=== PATIENT | female | born 1960 | race Caucasian/White ===

== ENCOUNTER 2016-09-10 09:12 | Emergency (ER) | payer MEDICAID ==
[2016-09-10 09:22] VITALS: TEMP 98
--- NOTE | 2016-09-10 09:31 | ED ---
URI HPI - General Chief Complaint: Upper Respiratory Infection Stated Complaint: sinus Time Seen by Provider: 09/10/16 09:25 Source: patient, RN notes reviewed Mode of arrival: ambulatory Limitations: no limitations - History of Present Illness Initial Comments: 56-year-old female presents emergency Department chief complaint of sinus pressure, sinus headache. Patient states that she's been having ongoing symptoms. Patient states that she just had low-grade fever throughout this. She states she has minimal cough is that she was only [place]/down. Patient denies any chest pain or shortness breath. Patient states she's been taking ibuprofen for her fever. Patient states that she has pressure in her ears and just generalized feels sick. She has not tried any [id number] cough and cold medications. - Related Data Home Medications Medication Instructions Recorded Confirmed ALPRAZolam [Xanax] 0.25 mg PO DAILY PRN 07/17/14 09/10/16 Levothyroxine Sodium [Synthroid] 200 mcg PO DAILY 07/17/14 09/10/16 Losartan-Hctz 50-12.5 mg [Hyzaar 1 tab PO DAILY 07/17/14 09/10/16 50-12.5] Ergocalciferol (Vitamin D2) 50,000 unit PO TU 06/07/16 09/10/16 [Drisdol] Previous Rx's Medication Instructions Recorded Escitalopram [Lexapro] 10 mg PO DAILY tab 06/10/16 Levofloxacin [Levaquin] 500 mg PO DAILY #10 tab 09/10/16 Allergies Allergy/AdvReac Type Severity Reaction Status Date / Time moxifloxacin HCl Allergy Intermediate Rash/Hives Verified 09/10/16 09:23 [From Avelox] Sulfa (Sulfonamide Allergy Intermediate Rash/Hives Verified 09/10/16 09:23 Antibiotics) sodium nitrite AdvReac Severe MIGRAINE Verified 09/10/16 09:23 Penicillins AdvReac Unknown Verified 09/10/16 09:23 Review of Systems ROS Statement: Those systems with pertinent positive or pertinent negative responses have been documented in the HPI. ROS Other: All systems not noted in ROS Statement are negative. Past Medical History Past Medical History: Asthma, Cancer, Hypertension, Pneumonia, Sleep Apnea/CPAP/ BIPAP Additional Past Medical History / Comment(s): Thyroid cancer status post radiation and thyroidectomy, skin cancer with removal, CHELSEA with CPAP (pt did not bring with her because normally she tolerates it well but last couple nights has not been able to tolerate), 2009 pneumonia, IBS. History of Any Multi-Drug Resistant Organisms: None Reported Past Surgical History: Adenoidectomy, Breast Surgery, Heart Catheterization, Tonsillectomy Additional Past Surgical History / Comment(s): Total thyroidectomy, skin cancer removal from nose and forehead, bilateral breast reductions, normal cardiac cath , colonoscopy. Past Anesthesia/Blood Transfusion Reactions: Previous Problems w/ Anesthesia, Motion Sickness Additional Past Anesthesia/Blood Transfusion Reaction / Comment(s): DIFFICULT INTUBATION. Pt received blood with breast surgery without reaction. Past Psychological History: Anxiety, Depression Additional Psychological History / Comment(s): Pt resides with her spouse. She is independent. Smoking Status: Former smoker Past Alcohol Use History: Occasional Additional Past Alcohol Use History / Comment(s): Pt smoked from [id number]. Past Drug Use History: None Reported - Past Family History Father Family Medical History: Diabetes Mellitus, Myocardial Infarction (HI) Additional Family Medical History / Comment(s): Father had 4-5 HI's with his first HI at the age of 78yrs. He lived to be 82 yrs old. Mother Family Medical History: Cancer Additional Family Medical History / Comment(s): Mother is 77 yrs old and has end stage pancreatic cancer. General Exam Limitations: no limitations General appearance: alert, in no apparent distress Head exam: Present: atraumatic, normocephalic, normal inspection Eye exam: Present: normal appearance, PERRL, EOMI. Absent: scleral icterus, conjunctival injection, periorbital swelling ENT exam: Present: mucous membranes moist, TM's normal bilaterally, normal external ear exam. Absent: normal oropharynx (Erythema, posterior nasal drainage) Neck exam: Present: normal inspection, full ROM. Absent: tenderness, meningismus, lymphadenopathy Respiratory exam: Present: normal lung sounds bilaterally. Absent: respiratory distress, wheezes, rales, rhonchi, stridor Cardiovascular Exam: Present: regular rate, normal rhythm, normal heart sounds. Absent: systolic murmur, diastolic murmur, rubs, gallop, clicks Course Vital Signs 09/10/16 09:20 Temperature 98.0 F Pulse Rate 81 Respiratory 16 Rate Blood Pressure 118/71 O2 Sat by Pulse 97 Oximetry Medical Decision Making - Medical Decision Making 56-year-old female presented for cough and cold like symptoms. Patient does have occasional sinus. Patient's had low-grade fever, facial pain. Patient was treated with antibiotics at this time. Disposition Clinical Impression: Acute sinusitis Disposition: HOME SELF-CARE Condition: Stable Instructions: Sinusitis (ED) Additional Instructions: Please return to the Emergency Department if symptoms worsen or any other concerns. Prescriptions: Levofloxacin [Levaquin] 500 mg PO DAILY #10 tab Referrals: Ray Gunn DO [Primary Care Provider] - 1-2 days Time of Disposition: 09:31
[2016-09-10 09:42] VITALS: BP 136/76; PULSE 77; RESP 15
== END 2016-09-10 10:00 | disposition home or self-care (01) ==
LOC: EC 09:12
DX: J01.90 Acute sinusitis, unspecified (principal); I10 Essential (primary) hypertension; G47.33 Obstructive sleep apnea (adult) (pediatric); F32.9 Major depressive disorder, single episode, unspecified; F41.9 Anxiety disorder, unspecified; E89.0 Postprocedural hypothyroidism; Z85.850 Personal history of malignant neoplasm of thyroid; Z99.89 Dependence on other enabling machines and devices; Z79.899 Other long term (current) drug therapy; Z88.1 Allergy status to other antibiotic agents; Z88.2 Allergy status to sulfonamides; Z87.891 Personal history of nicotine dependence
CPT/HCPCS: 99283

== ENCOUNTER → 2017-06-22 | Outpatient (CLI) | payer MEDICAID ==
--- NOTE | 2017-06-26 10:02 | MM ---
Reason for exam: screening (asymptomatic). Last mammogram was performed 5 years and 4 months ago. History: Patient has history of other cancer at age 46. Family history of breast cancer in paternal aunt. Reduction of the left breast, 1991. Reduction of the right breast. Physical Findings: A clinical breast exam by your physician is recommended on an annual basis and results should be correlated with mammographic findings. MG 3D Screening Mammo W/Cad Bilateral CC and MLO view(s) were taken. Prior study comparison: February 09, 2012, CAD bilateral diagnostic mammogram. April 30, 2010, bilateral diagnostic digital mammog. The breast tissue is almost entirely fat. There is chronic nodularity bilaterally. No significant changes when compared with prior studies. ASSESSMENT: Benign, BI-RAD 2 RECOMMENDATION: Routine screening mammogram of both breasts in 1 year.
== END | disposition home or self-care (01) ==
LOC: RADMAMWWP 06:55
PROVIDERS: ATTEND Family Medicine
DX: Z12.31 Encounter for screening mammogram for malignant neoplasm of breast (principal)
CPT/HCPCS: 77063; G0202

== ENCOUNTER 2017-09-05 06:58 | Emergency (ER) | payer MEDICAID ==
[2017-09-05 07:05] VITALS: BP 170/82; PULSE 76; RESP 18; TEMP 97.6
[2017-09-05 07:56] LABS: Appearance,Urine Cloudy (Clear); Bacteria,Urine Occasional /hpf; Bilirubin,Urine Negative (Negative); Blood,Urine Trace (Negative); Color,Urine Yellow; Glucose,Urine (UA) Negative (Negative); Ketones,Urine Negative (Negative); Leukocyte Esterase,Urine Small (Negative); Mucus,Urine Few /hpf; Nitrite,Urine Negative (Negative); Protein,Urine Trace (Negative); RBC,Urine 10 /hpf (0-5); Specific Gravity,Urine 1.019 (1.001-1.035); Squamous Epithelial Cell,Urine 15 /hpf (0-4); Urobilinogen,Urine <2.0 mg/dL (<2.0); WBC,Urine 13 /hpf (0-5)
[2017-09-05] MEDS ORDERED: SODIUM CHLORIDE 0.9% 1,000 ML IV STA (08:34)
[2017-09-05] MEDS ORDERED: KETOROLAC 30 MG/ML 1 ML VIAL IVP STA (08:34)
[2017-09-05] MEDS ORDERED: cefTRIAXone IN SWFI 1,000 MG/10 ML SYRINGE IVP STA (08:36)
--- NOTE | 2017-09-05 08:39 | ED ---
General Adult HPI - General Chief complaint: Abdominal Pain Stated complaint: FLANK PAIN Time Seen by Provider: 09/05/17 08:26 Source: patient, RN notes reviewed Mode of arrival: ambulatory Limitations: no limitations - History of Present Illness Initial comments: 57-year-old female presents to the emergency department with a chief complaint of right-sided flank pain. Patient states this started yesterday. She's been a dull ache type pain. No nausea no vomiting no fever chills. She does admit to history of UTIs and states when she gave her urine sample she was suspicious that did look abnormal but she has not had any urinary complaints. She states she hasn't had any high fevers. She denies any history of an infection in the past denies any history of kidney stones. She denies any dysuria. She was concerned due to the fact that she continued to have this discomfort into today so she thought that she should be seen. Patient denies any other symptoms with this at this time.Patient denies any recent fever, chills, shortness of breath, chest pain, nausea vomiting, numbness or tingling, dysuria or hematuria, constipation or diarrhea, headaches or visual changes, or any other current symptoms. - Related Data Home Medications Medication Instructions Recorded Confirmed Levothyroxine Sodium [Synthroid] 200 mcg PO DAILY 07/17/14 09/05/17 Losartan-Hctz 50-12.5 mg [Hyzaar 1 tab PO DAILY 07/17/14 09/05/17 50-12.5] Previous Rx's Medication Instructions Recorded Escitalopram [Lexapro] 10 mg PO DAILY tab 06/10/16 Levofloxacin [Levaquin] 750 mg PO DAILY #7 tab 09/05/17 Allergies Allergy/AdvReac Type Severity Reaction Status Date / Time moxifloxacin HCl Allergy Intermediate Rash/Hives Verified 09/05/17 07:44 [From Avelox] Sulfa (Sulfonamide Allergy Intermediate Rash/Hives Verified 09/05/17 07:44 Antibiotics) sodium nitrite AdvReac Severe MIGRAINE Verified 09/05/17 07:44 Penicillins AdvReac Unknown Verified 09/05/17 07:44 NARCOTICS AdvReac Severe Nausea Uncoded 09/05/17 07:44 Review of Systems ROS Statement: Those systems with pertinent positive or pertinent negative responses have been documented in the HPI. ROS Other: All systems not noted in ROS Statement are negative. Past Medical History Past Medical History: Asthma, Cancer, Hypertension, Pneumonia, Sleep Apnea/CPAP/ BIPAP Additional Past Medical History / Comment(s): Thyroid cancer status post radiation and thyroidectomy, skin cancer with removal, CHELSEA with CPAP (pt did not bring with her because normally she tolerates it well but last couple nights has not been able to tolerate), 2009 pneumonia, IBS. History of Any Multi-Drug Resistant Organisms: None Reported Past Surgical History: Adenoidectomy, Breast Surgery, Heart Catheterization, Tonsillectomy Additional Past Surgical History / Comment(s): Total thyroidectomy, skin cancer removal from nose and forehead, bilateral breast reductions, normal cardiac cath , colonoscopy. Past Anesthesia/Blood Transfusion Reactions: Previous Problems w/ Anesthesia, Motion Sickness Additional Past Anesthesia/Blood Transfusion Reaction / Comment(s): DIFFICULT INTUBATION. Pt received blood with breast surgery without reaction. Past Psychological History: Anxiety, Depression Smoking Status: Former smoker Past Alcohol Use History: Occasional Past Drug Use History: None Reported - Past Family History Father Family Medical History: Diabetes Mellitus, Myocardial Infarction (TN) Additional Family Medical History / Comment(s): Father had 4-5 TN's with his first TN at the age of 78yrs. He lived to be 82 yrs old. Mother Family Medical History: Cancer Additional Family Medical History / Comment(s): Mother is 77 yrs old and has end stage pancreatic cancer. General Exam - General Exam Comments Initial Comments: General: The patient is awake and alert, in no distress, and does not appear acutely ill. Eye: Pupils are equal, round and reactive to light, extra-ocular movements are intact; there is normal conjunctiva bilaterally. No signs of icterus. Ears, nose, mouth and throat: There are moist mucous membranes. Neck: The neck is supple, there is no tenderness. Cardiovascular: There is a regular rate and rhythm. No murmur, rub or gallop is appreciated. Respiratory: Lungs are clear to auscultation, respirations are non-labored, breath sounds are equal. No wheezes, stridor, rales, or rhonchi. Gastrointestinal: Soft, non-distended, non-tender abdomen without masses or organomegaly noted. There is no rebound or guarding present. Right sided CVA tenderness. Bowel sounds are unremarkable. Back: There is no tenderness to palpation in the midline. There is no obvious deformity. No rashes noted. Musculoskeletal: Normal ROM, no tenderness, There is no pedal edema. There is no calf tenderness or swelling. Sensation intact. Pulses equal bilaterally 2+. Neurological: CN II-XII intact, There are no obvious motor or sensory deficits. Coordination appears grossly intact. Speech is normal. Skin: Skin is warm and dry and no rashes or lesions are noted. Psychiatric: Cooperative, appropriate mood & affect, normal judgment. Limitations: no limitations Course Vital Signs 09/05/17 07:01 Temperature 97.6 F Pulse Rate 76 Respiratory 18 Rate Blood Pressure 170/82 O2 Sat by Pulse 97 Oximetry Medical Decision Making - Medical Decision Making 57-year-old female presents emergency department with a chief complaint of right -sided flank pain. At this time patient's lab work has been reviewed as well as CAT scan. At this time the patient does show suspicion for UTI. Possibly the start of pyelonephritis. This time we do give her dose of Rocephin. We did start her on Bactrim for home for antibiotics. We did discuss close follow- up with her doctor we did discuss return parameters all questions. Patient stated that she understood and she is agreement this plan. All questions have been answered. At this time she will be discharged. - Lab Data Result diagrams: 09/05/17 08:50 09/05/17 08:50 Lab Results 09/05/17 09/05/17 09/05/17 Range/Units 07:41 08:50 08:50 WBC 8.6 (3.8-10.6) k/uL RBC 4.96 (3.80-5.40) m/uL Hgb 14.8 (11.4-16.0) gm/dL Hct 45.2 (34.0-46.0) % MCV 91.1 (80.0-100.0) fL MCH 29.8 (25.0-35.0) pg MCHC 32.8 (31.0-37.0) g/dL RDW 13.3 (11.5-15.5) % Plt Count 272 (150-450) k/uL Neutrophils % 65 % Lymphocytes % 25 % Monocytes % 5 % Eosinophils % 3 % Basophils % 1 % Neutrophils # 5.5 (1.3-7.7) k/uL Lymphocytes # 2.2 (1.0-4.8) k/uL Monocytes # 0.5 (0-1.0) k/uL Eosinophils # 0.2 (0-0.7) k/uL Basophils # 0.1 (0-0.2) k/uL Sodium 141 (137-145) mmol/L Potassium 4.5 (3.5-5.1) mmol/L Chloride 104 (98-107) mmol/L Carbon Dioxide 28 (22-30) mmol/L Anion Gap 9 mmol/L BUN 15 (7-17) mg/dL Creatinine 0.74 (0.52-1.04) mg/dL Est GFR (MDRD) Af Amer >60 (>60 ml/min/1.73 sqM) Est GFR (MDRD) Non-Af >60 (>60 ml/min/1.73 sqM) Glucose 129 H (74-99) mg/dL Calcium 9.4 (8.4-10.2) mg/dL Total Bilirubin 0.7 (0.2-1.3) mg/dL AST 27 (14-36) U/L ALT 46 (9-52) U/L Alkaline Phosphatase 85 (38-126) U/L Total Protein 6.4 (6.3-8.2) g/dL Albumin 3.8 (3.5-5.0) g/dL Urine Color Yellow Urine Appearance Cloudy H (Clear) Urine pH 6.0 (5.0-8.0) Ur Specific [place] 1.019 (1.001-1.035) Urine Protein Trace H (Negative) Urine Glucose (UA) Negative (Negative) Urine Ketones Negative (Negative) Urine Blood Trace H (Negative) Urine Nitrite Negative (Negative) Urine Bilirubin Negative (Negative) Urine Urobilinogen <2.0 (<2.0) mg/dL Ur Leukocyte Esterase Small H (Negative) Urine RBC 10 H (0-5) /hpf Urine WBC 13 H (0-5) /hpf Ur Squamous Epith Cells 15 H (0-4) /hpf Urine Bacteria Occasional H (None) /hpf Urine Mucus Few H (None) /hpf - Radiology Data Radiology results: report reviewed, image reviewed Disposition Clinical Impression: UTI (urinary tract infection) Disposition: HOME SELF-CARE Condition: Stable Instructions: Urinary Tract Infection in Women (ED) Additional Instructions: Please use medication as discussed. Please follow up with family doctor if symptoms have not improved over the next two days. Please return to the emergency room if your symptoms increase or worsen or for any other concerns. Prescriptions: Levofloxacin [Levaquin] 750 mg PO DAILY #7 tab Referrals: Ray Gunn DO [Primary Care Provider] - 1-2 days Time of Disposition: 09:32
[2017-09-05 09:06] LABS: Basophils # (A) 0.1 k/uL (0-0.2); Basophils % (A) 1 %; Eosinophils # (A) 0.2 k/uL (0-0.7); Eosinophils % (A) 3 %; HCT 45.2 % (34.0-46.0); HGB 14.8 gm/dL (11.4-16.0); Lymphocytes # (A) 2.2 k/uL (1.0-4.8); Lymphocytes % (A) 25 %; MCH 29.8 pg (25.0-35.0); MCHC 32.8 g/dL (31.0-37.0); MCV 91.1 fL (80.0-100.0); Mean Platelet Volume 7.7; Monocytes # (A) 0.5 k/uL (0-1.0); Monocytes % (A) 5 %; Neutrophils # (A) 5.5 k/uL (1.3-7.7); Neutrophils % (A) 65 %; Platelet Count 272 k/uL (150-450); RBC 4.96 m/uL (3.80-5.40); RDW 13.3 % (11.5-15.5); WBC 8.6 k/uL (3.8-10.6)
--- NOTE | 2017-09-05 09:16 | CT ---
EXAMINATION TYPE: CT abdomen pelvis wo con DATE OF EXAM: 09/05/2017 COMPARISON: NONE HISTORY: Rt flank pain CT DLP: 1491.6 mGycm Automated exposure control for dose reduction was used. TECHNIQUE: Helical acquisition of images was performed from the lung bases through the pelvis. FINDINGS: LUNG BASES: 2 mm pulmonary nodule is seen within the left lower lobe on series 5 image 3. Remainder t he lung bases are clear. LIVER/GB: Hepatic parenchyma is diffusely hypoattenuated in comparison to that of the spleen, most co mmonly seen in hepatic steatosis. This finding limits evaluation for hepatic masses. Focal fatty spar ing is seen around the gallbladder fossa. No gross evidence of hepatic mass is seen. No intrahepatic biliary ductal dilatation. No cholelithiasis PANCREAS: No significant abnormality is seen. SPLEEN: No significant abnormality is seen. Small splenule seen adjacent to the [place] spleen. ADRENALS: No significant abnormality is seen. KIDNEYS: There is no evidence of nephrolithiasis or hydronephrosis. Approximately 1.2 cm left lower p ole renal cyst is present. FREE AIR: No free air is visualized RETROPERITONEAL ADENOPATHY: None visualized REPRODUCTIVE ORGANS: No significant abnormality is seen URINARY BLADDER: No significant abnormality is seen. PELVIC ADENOPATHY: None visualized. OSSEOUS STRUCTURES: No significant abnormality is seen. BOWEL: There is no evidence of bowel enlargement to suggest obstruction. No thickening of the termin al ileum. Appendix is partially air-filled and within normal limits of size. No periappendiceal fat s aturated. Few sigmoid diverticula are present without pericolonic fat stranding. OTHER: There is a small fat filled umbilical hernia superimposed upon diastases recti. IMPRESSION: 1. NO EVIDENCE OF HYDRONEPHROSIS OR NEPHROLITHIASIS. 2. FEW SIGMOID DIVERTICULA WITHOUT PERICOLONIC FAT STRANDING. NO ACUTE DIVERTICULITIS. 3. HEPATIC STEATOSIS. 4. UNREMARKABLE APPENDIX.
[2017-09-05 09:21] LABS: ALT 46 U/L (9-52); AST 27 U/L (14-36); Albumin 3.8 g/dL (3.5-5.0); Alkaline Phosphatase 85 U/L (38-126); Anion Gap 9 mmol/L; Blood Urea Nitrogen 15 mg/dL (7-17); Calcium 9.4 mg/dL (8.4-10.2); Carbon Dioxide 28 mmol/L (22-30); Chloride 104 mmol/L (98-107); Glucose 129 mg/dL (74-99); Potassium 4.5 mmol/L (3.5-5.1); Sodium 141 mmol/L (137-145); Total Bilirubin 0.7 mg/dL (0.2-1.3); Total Protein 6.4 g/dL (6.3-8.2)
[2017-09-06] MEDS ORDERED: KETOROLAC 30 MG/ML 1 ML VIAL IM ONE (15:45)
== END 2017-09-05 09:43 | disposition home or self-care (01) ==
LOC: EC 06:58
DX: N39.0 Urinary tract infection, site not specified (principal); I10 Essential (primary) hypertension; G47.30 Sleep apnea, unspecified; Z99.89 Dependence on other enabling machines and devices; Z85.828 Personal history of other malignant neoplasm of skin; Z85.850 Personal history of malignant neoplasm of thyroid; Z95.5 Presence of coronary angioplasty implant and graft; Z87.891 Personal history of nicotine dependence; Z79.899 Other long term (current) drug therapy; Z88.1 Allergy status to other antibiotic agents; Z88.2 Allergy status to sulfonamides; Z88.0 Allergy status to penicillin; Z88.5 Allergy status to narcotic agent; Z88.8 Allergy status to other drugs, medicaments and biological substances
CPT/HCPCS: 36415; 80053; 85025; 81001; 87040; 87086; 74176; 99284; 96374; 96375; 96361; J0696; J1885; 87077; 87186

== ENCOUNTER → 2017-09-06 | Outpatient (CLI) | payer MEDICAID ==
[~2017-09-06] MED LIST: KETOROLAC 30 MG/ML 1 ML VIAL IM STA
== END | disposition home or self-care (01) ==
LOC: LABMAIN 15:30
PROVIDERS: ATTEND Emergency Medicine
DX: N00.9 Acute nephritic syndrome with unspecified morphologic changes (principal)
CPT/HCPCS: 96372; J1885

== ENCOUNTER → 2017-09-21 | Outpatient (CLI) | payer MEDICAID ==
--- NOTE | 2017-09-21 11:55 | CT ---
EXAMINATION TYPE: CT chest w con DATE OF EXAM: 09/21/2017 COMPARISON: NONE HISTORY: Solitary pulmonary nodule CT DLP: 495.6 mGycm, Automated exposure control for dose reduction was used. CONTRAST: Performed injected with 100 mL of Omnipaque 300. TECHNIQUE: Axial images were obtained at 5 mm thick sections. Reconstructed images are reviewed on [employer] computer in the coronal plane. FINDINGS: Thyroid is not visualized. There is a 0.3 cm nodular density along the major fissure near the left lung base. Series 4 image 30. This is stable from the comparison of 09/05/2017. No additional suspicious nodules are evident. No enlarged mediastinal or hilar adenopathy is evident. There are scattered small lymph nodes withi n the left axillary region. No enlarged mediastinal or hilar lymphadenopathy is evident. The ascendin g aorta diameter at the level of the main pulmonary artery is 3.7 cm. The main pulmonary artery diam eter at the bifurcation is 2.[address] sections are obtained through the upper abdomen. Moderate fatty infiltration liver is pres ent. IMPRESSIONS: 1. Tiny nodule along the major fissure near the left lung base. Follow-up chest CT in 12 months is re commended. 2. Moderate fatty infiltration of the liver.
== END | disposition home or self-care (01) ==
LOC: RADCTMAIN 07:31
PROVIDERS: ATTEND Family Medicine
DX: R91.1 Solitary pulmonary nodule (principal)
CPT/HCPCS: 71260

== ENCOUNTER → 2018-02-13 | Outpatient (CLI) | payer MEDICAID ==
--- NOTE | 2018-02-13 18:50 | PN ---
PROGRESS NOTE This patient is 57, coming in for routine check regarding obstructive sleep apnea. 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 She recently lost both of her parents and at one point she became noncompliant with her CPAP treatment and she is back in to reestablish herself with therapy. She is looking for an alternative mask interface that will give her a better seal. She is currently on a CPAP pressure of 12 cm of water; however, checking her CPAP machine, the patient has not used her treatment for more than 9 months. No recent weight gain. Her weight has remained stable at 246. She has been hypertensive with adequately controlled blood pressure and she has hypothyroidism, continues to receive thyroid treatment. Baseline sleep apnea is severe and the patient has an AHI of 37 and she has used a [employer] full-face mask in the past. REVIEW OF SYSTEMS: A 12-point review of system was done. Positive findings are mentioned above in history of present illness. MEDICATION: Includes: 1. Hyzaar 12.5/50 one tablet a day. 2. Vitamin D3. 3. Lexapro 10 mg p.o. daily. 4. Synthroid 200 mcg p.o. daily. VITALS: BP is 143/82, pulse 72, respirations 16, temperature 97.9, saturation 99% on room air. Weight is 246. Height is 5 feet 4 inches. GENERAL APPEARANCE: Calm, comfortable. Head is atraumatic, normocephalic. Neck is short, supple. There is no goiter or neck mass. Mallampati class IV. LUNGS: Clear to auscultation. Heart sounds regular rate and rhythm. Normal S1, S2. No S3, S4. No murmurs. ABDOMEN: Soft, nontender. No organomegaly. EXTREMITIES: No edema. No cyanosis or clubbing. IMPRESSION: 1. Severe symptomatic obstructive sleep apnea with an apnea-hypopnea index of 37. The patient is not receiving any CPAP therapy at this point. 2. Hypersomnia secondary to above. 3. Hypothyroidism. 4. History of depression. 5. Hypertension. PLAN: 1. Encourage weight loss. 2. Restart CPAP therapy. The patient was fitted to an AirTouch medium-sized full face mask. 3. Restart CPAP therapy at same level of pressure. 4. See me back in a year's time in followup, earlier if needed. Anticipate improvement in her symptoms with re-initiation of CPAP therapy. MMODL / IJN: [id number] /
== END | disposition home or self-care (01) ==
LOC: SLEEP 15:06
PROVIDERS: ATTEND Internal Medicine Critical Care Medicine
DX: G47.33 Obstructive sleep apnea (adult) (pediatric) (principal); Z53.9 Procedure and treatment not carried out, unspecified reason

== ENCOUNTER → 2018-07-19 | Outpatient (CLI) | payer MEDICAID ==
--- NOTE | 2018-07-19 15:39 | XR ---
EXAMINATION TYPE: XR shoulder complete LT DATE OF EXAM: 07/19/2018 COMPARISON: 08/07/2010 HISTORY: 58-year-old female pain for 2 years TECHNIQUE: 3 views FINDINGS: Mild degenerative spurring at the AC joint. Subacromial space is preserved. No tendinous or bursal ca lcifications. No acute fracture, subluxation, or dislocation. Visualized left hemithorax is clear. IMPRESSION: Mild degenerative spurring at the AC joint. No acute osseous abnormality seen.
== END | disposition home or self-care (01) ==
LOC: RADXRMAIN 10:52
PROVIDERS: ATTEND Family Medicine
DX: M75.82 Other shoulder lesions, left shoulder (principal)

== ENCOUNTER → 2018-08-03 | Outpatient (CLI) | payer MEDICAID | END | disposition home or self-care (01) | LOC: LABWHC1 07:24 | PROVIDERS: ATTEND Family Medicine | DX: E11.65 Type 2 diabetes mellitus with hyperglycemia (principal) | CPT/HCPCS: 36415; 80061 ==

== ENCOUNTER → 2020-03-12 | Outpatient (CLI) | payer MEDICAID ==
[2020-03-12 07:39] LABS: Basophils # (A) 0.1 k/uL (0-0.2); Basophils % (A) 1 %; Eosinophils # (A) 0.3 k/uL (0-0.7); Eosinophils % (A) 3 %; HCT 50.1 % (34.0-46.0); Lymphocytes # (A) 2.2 k/uL (1.0-4.8); Lymphocytes % (A) 23 %; MCH 29.4 pg (25.0-35.0); MCHC 31.8 g/dL (31.0-37.0); MCV 92.2 fL (80.0-100.0); Mean Platelet Volume 8.5; Monocytes # (A) 0.6 k/uL (0-1.0); Monocytes % (A) 6 %; Neutrophils # (A) 6.3 k/uL (1.3-7.7); Neutrophils % (A) 66 %; Platelet Count 292 k/uL (150-450); RBC 5.44 m/uL (3.80-5.40); RDW 13.3 % (11.5-15.5); WBC 9.5 k/uL (3.8-10.6)
[2020-03-12 11:49] LABS: African American GFR (CKD) 81.7 (60.0-200.0); Albumin 4.3 g/dL (3.80-4.90); Albumin/Globulin Ratio 1.79 (1.60-3.17); Anion Gap 7.9 mmol/L (4.00-12.00); BUN/Creat Ratio 17.78 Ratio (12.00-20.00); Calcium 9.7 mg/dL (8.7-10.3); Carbon Dioxide 29.1 mmol/L (21.6-31.8); Globulin 2.4 g/dL (1.6-3.3); Non-African American GFR(CKD) 70.5 (60.0-200.0); Total Bilirubin 0.6 mg/dL (0.2-1.2); Total Protein 6.7 g/dL (6.2-8.2)
[2020-03-12 14:23] LABS: Hemoglobin A1C 8.5 % (4.0-6.0)
== END | disposition home or self-care (01) ==
LOC: LABWHC1 07:14
PROVIDERS: ATTEND Family Medicine
DX: E11.9 Type 2 diabetes mellitus without complications (principal); I10 Essential (primary) hypertension; E03.9 Hypothyroidism, unspecified
CPT/HCPCS: 36415; 80053; 83036; 84439; 84443; 85025

== ENCOUNTER → 2020-05-15 | Outpatient (CLI) | payer MEDICAID ==
--- NOTE | 2020-05-15 09:35 | FL ---
ESOPHOGRAM. HISTORY: Dysphagia Esophagram was performed per the air contrast technique. The patient swallowed barium and effervesce nt crystals without difficulty or delay. Esophageal peristalsis and motility appear to be within normal limits. There is no evidence for filling defect, mass or diverticulum. No hiatal hernia seen. Subsequently single contrast cervical esophagram was performed which fails demonstrate evidence for a spiration penetration or mass. IMPRESSION: Unremarkable study.
== END | disposition home or self-care (01) ==
LOC: RADUSWWP 08:47
PROVIDERS: ATTEND Family Medicine
DX: R13.10 Dysphagia, unspecified (principal)
CPT/HCPCS: 74220

== ENCOUNTER → 2020-08-14 | Outpatient (CLI) | payer MEDICAID ==
--- NOTE | 2020-08-14 11:38 | XR ---
EXAMINATION TYPE: XR knee complete RT DATE OF EXAM: 08/14/2020 CLINICAL HISTORY: Increasing pain. TECHNIQUE: Three views of the right knee are obtained. COMPARISON: None. FINDINGS: There is no acute fracture/dislocation evident in right knee. Moderate narrowing and spurr ing medial tibial femoral compartment. Mild to moderate narrowing and spurring patellofemoral compart ment. The overlying soft tissue appears unremarkable. IMPRESSION: As above.
== END | disposition home or self-care (01) ==
LOC: RADXRMAIN 10:53
PROVIDERS: ATTEND Nurse Practitioner Family
DX: M25.761 Osteophyte, right knee (principal); M25.861 Other specified joint disorders, right knee

== ENCOUNTER → 2020-10-05 | Outpatient (CLI) | payer MEDICAID ==
[2020-10-05 17:15] LABS: Hemoglobin A1C 9.9 % (4.0-6.0)
== END | disposition home or self-care (01) ==
LOC: LABWHC1 08:59
PROVIDERS: ATTEND Nurse Practitioner Family
DX: E11.65 Type 2 diabetes mellitus with hyperglycemia (principal)
CPT/HCPCS: 36415; 83036

== ENCOUNTER → 2020-10-30 | Outpatient (CLI) | payer MEDICAID ==
--- NOTE | 2020-10-30 18:01 | P.STRESS ---
- Stress Test Note Stress Test Results/Findings: Exam Performed: stress echo exercise Exam Date: 10/30/20 Reason for Exam: cp Height: 5 ft 4 in Weight: 240 kg Protocol: stress echo Stage: II Duration of Exercise: 4.15 Resting Heart Rate: 77 Resting Blood Pressure: 111/83 Maximum Achieved Heart Rate: 143 Maximum Achieved Blood Pressure: 220/50 85% PMHR: 137 100% PMHR: 161 METS: Technologist Comment: Stress Test Results/Findings: Patient underwent exercise stress echo with a Gary protocol treadmill stress test. Patient exercised into Stage 2 for a total of 4 minutes 15 seconds. Patient's maximum heart rate was 143 which represented 88 % age-predicted maximum heart rate. Stress EKG portion: At baseline patient's EKG showed to sinus rhythm, normal axis, minimal 0.[address] depressions in lead 2, 3, aVF, V5 and V6. At peak exercise, EKG showed nondiagnostic mild accentuation of baseline ST depressions in the inferio r and lateral leads up to [address] depressions. Stress echo portion: 2-D echocardiogram was performed in the parasternal long, personal short, apical 2 and apical four-chamber views at rest, peak exercise and in recovery. At baseline, echocardiogram showed left ventricular ejection fraction 60 % without wall motion abnormalities. With peak exercise, echocardiogram shows improvement in left ventricular ejection fraction, increase contractility, decrease in left ventricular dimension without wall motion abnormalities consistent with a normal response to exercise. Conclusions: 1. Nondiagnostic EKG response due to baseline EKG abnormalities 2. Normal echo response to exercise without evidence of inducible ischemia. 2. Poor exercise capacity.
== END ==
LOC: RADNMMAIN 09:49
PROVIDERS: ATTEND Internal Medicine Interventional Cardiology
DX: R94.31 Abnormal electrocardiogram [ECG] [EKG] (principal)
CPT/HCPCS: 93270; 93306; 93351

== ENCOUNTER 2020-12-04 06:59 | Emergency (ER) | payer MEDICAID ==
[2020-12-04] MEDS ORDERED: SODIUM CHLORIDE 0.9% 1,000 ML IV SCH (07:15)
[2020-12-04] MEDS ORDERED: ACETAMINOPHEN TAB 325 MG TAB PO STA (07:15)
[2020-12-04] MEDS ORDERED: SODIUM CHLORIDE 0.9% 1,000 ML IV ONE (07:15)
[2020-12-04] MEDS ORDERED: KETOROLAC 15 MG/ML 1 ML VIAL IVP STA (07:15)
--- NOTE | 2020-12-04 07:24 | ED ---
SOB HPI - General Chief Complaint: Shortness of Breath Stated Complaint: Fever,Cough,SOB Time Seen by Provider: 12/04/20 07:06 Source: patient Mode of arrival: ambulatory Limitations: no limitations - History of Present Illness Initial Comments: 60-year-old female history of diabetes presenting to the ER today for chief complaint of cough and fatigue general malaise bodyaches shortness of breath. Patient states that she's had symptoms since Monday she states she's been exposed to carbon but has tested negative outpatient. Patient states that she hurts shortness of breath has worsened over the past 2 days she denies a chest pain like swelling hemoptysis she denies any nausea or vomiting but admits to some loose stools. Patient has no convincing abdominal pain. She appears fatigued but nontoxic on arrival. Patient's oxygen and will room air no signs of respiratory distress. - Related Data Home Medications Medication Instructions Recorded Confirmed Levothyroxine Sodium [Synthroid] 200 mcg PO DAILY 07/17/14 09/05/17 Losartan-Hctz 50-12.5 mg [Hyzaar 1 tab PO DAILY 07/17/14 09/05/17 50-12.5] Previous Rx's Medication Instructions Recorded Escitalopram [Lexapro] 10 mg PO DAILY tab 06/10/16 Levofloxacin [Levaquin] 750 mg PO DAILY #7 tab 09/05/17 Allergies Allergy/AdvReac Type Severity Reaction Status Date / Time moxifloxacin HCl Allergy Intermediate Rash/Hives Verified 12/04/20 07:04 [From Avelox] Sulfa (Sulfonamide Allergy Intermediate Rash/Hives Verified 12/04/20 07:04 Antibiotics) sodium nitrite AdvReac Severe MIGRAINE Verified 12/04/20 07:04 Penicillins AdvReac Unknown Verified 12/04/20 07:04 NARCOTICS AdvReac Severe Nausea Uncoded 12/04/20 07:04 Review of Systems ROS Statement: Those systems with pertinent positive or pertinent negative responses have been documented in the HPI. ROS Other: All systems not noted in ROS Statement are negative. Past Medical History Past Medical History: Asthma, Cancer, Hypertension, Pneumonia, Sleep Apnea/CPAP/BIPAP Additional Past Medical History / Comment(s): Thyroid cancer status post radiation and thyroidectomy, skin cancer with removal, [place] with CPAP (pt did not bring with her because normally she tolerates it well but last couple nights has not been able to tolerate)2008 pneumonia, IBS. History of Any Multi-Drug Resistant Organisms: None Reported Past Surgical History: Adenoidectomy, Breast Surgery, Heart Catheterization, Tonsillectomy Additional Past Surgical History / Comment(s): Total thyroidectomy, skin cancer removal from nose and forehead, bilateral breast reductions, normal cardiac cath, colonoscopy. Past Anesthesia/Blood Transfusion Reactions: Previous Problems w/ Anesthesia, Motion Sickness Additional Past Anesthesia/Blood Transfusion Reaction / Comment(s): DIFFICULT INTUBATION. Pt received blood with breast surgery without reaction. Past Psychological History: Anxiety, Depression Past Alcohol Use History: Occasional Past Drug Use History: None Reported - Past Family History Father Family Medical History: Diabetes Mellitus, Myocardial Infarction (MD) Additional Family Medical History / Comment(s): Father had 4-5 MD's with his first MD at the age of 78yrs. He lived to be 82 yrs old. Mother Family Medical History: Cancer Additional Family Medical History / Comment(s): Mother is 77 yrs old and has end stage pancreatic cancer. General Exam - General Exam Comments Initial Comments: General: The patient is awake and alert, in no distress Eye: +3 mm pupils are equal, round and reactive to light, extra-ocular movements are intact. No nystagmus. There is normal conjunctiva bilaterally. No signs of icterus. Ears, nose, mouth and throat: There are moist mucous membranes and no oral lesions. Neck: The neck is supple, there is no tenderness or JVD. Cardiovascular: There is a regular rate and rhythm. No murmur, rub or gallop is appreciated. Respiratory: Respirations are non-labored, breath sounds are equal. No wheezes, stridor.Slight rale Left lungbase Musculoskeletal: Normal ROM, no tenderness. Strength 5/5. Sensation intact. Pulses equal bilaterally 2+. Neurological: A&O x 3. CN II-XII intact grossly, There are no obvious motor or sensory deficits. Coordination appears grossly intact. Speech is normal. Skin: Skin is warm and dry and no rashes or lesions are noted. Psychiatric: Cooperative, appropriate mood & affect, normal judgment. Limitations: no limitations Course Vital Signs 12/04/20 12/04/20 12/04/20 07:00 08:47 09:13 Temperature 98.7 F 98.1 F 98.9 F Pulse Rate 99 74 74 Respiratory 20 20 18 Rate Blood Pressure 145/87 120/69 126/68 O2 Sat by Pulse 95 96 94 L Oximetry Medical Decision Making - Medical Decision Making Labs overall stable. CXR consistent wtih exam felt to be a left sided infiltrate with hx of covid with no leukocytosis i suspect viral in origin. Pt dimer WNL. EKG no acute findings. Patient is saturating well on room air greater than 92% patient with like to proceed with monoclonal antibodies. Patient was monitored after infusion with no adverse reaction. At this time patient appears well and nontoxic and is stable for discharge with outpatient primary care follow-up and return for any worsening shortness of breath she is monitoring her oxygen levels at home currently with a home pulse oximeter Ventricular rate 87 bpm, CT interval 170 ms, QRS duration 80 ms, QT/QTC 380/457 this is normal sinus with no ST elevation or depression present - Lab Data Result diagrams: 12/04/20 07:29 12/04/20 07:29 Lab Results 12/04/20 12/04/20 12/04/20 Range/Units 07:29 07:29 07:29 WBC 8.0 (3.8-10.6) k/uL RBC 5.43 H (3.80-5.40) m/uL Hgb 16.3 H (11.4-16.0) gm/dL Hct 48.5 H (34.0-46.0) % MCV 89.2 (80.0-100.0) fL MCH 30.1 (25.0-35.0) pg MCHC 33.7 (31.0-37.0) g/dL RDW 12.9 (11.5-15.5) % Plt Count 194 (150-450) k/uL MPV 8.5 Neutrophils % 68 % Lymphocytes % 23 % Monocytes % 6 % Eosinophils % 2 % Basophils % 1 % Neutrophils # 5.5 (1.3-7.7) k/uL Lymphocytes # 1.8 (1.0-4.8) k/uL Monocytes # 0.5 (0-1.0) k/uL Eosinophils # 0.1 (0-0.7) k/uL Basophils # 0.1 (0-0.2) k/uL PT 10.1 (9.0-12.0) sec INR 0.9 (<1.2) APTT 23.3 (22.0-30.0) sec D-Dimer 0.37 (<0.60) mg/L FEU Sodium 136 L (137-145) mmol/L Potassium 4.1 (3.5-5.1) mmol/L Chloride 104 (98-107) mmol/L Carbon Dioxide 22 (22-30) mmol/L Anion Gap 10 mmol/L BUN 13 (7-17) mg/dL Creatinine 0.66 (0.52-1.04) mg/dL Est GFR (CKD-EPI)AfAm >90 (>60 ml/min/1.73 sqM) Est GFR (CKD-EPI)NonAf >90 (>60 ml/min/1.73 sqM) Glucose 209 H (74-99) mg/dL Plasma Lactic Acid Red (0.7-2.0) mmol/L Calcium 9.1 (8.4-10.2) mg/dL Magnesium 1.8 (1.6-2.3) mg/dL Total Bilirubin 0.5 (0.2-1.3) mg/dL AST 49 H (14-36) U/L ALT 50 H (4-34) U/L Alkaline Phosphatase 96 (38-126) U/L Lactate Dehydrogenase 568 (313-618) U/L C-Reactive Protein 1.5 H (<1.0) mg/dL Total Protein 6.9 (6.3-8.2) g/dL Albumin 3.9 (3.5-5.0) g/dL Coronavirus (PCR) (Not Detectd) 12/04/20 12/04/20 Range/Units 07:29 07:29 WBC (3.8-10.6) k/uL RBC (3.80-5.40) m/uL Hgb (11.4-16.0) gm/dL Hct (34.0-46.0) % MCV (80.0-100.0) fL MCH (25.0-35.0) pg MCHC (31.0-37.0) g/dL RDW (11.5-15.5) % Plt Count (150-450) k/uL MPV Neutrophils % % Lymphocytes % % Monocytes % % Eosinophils % % Basophils % % Neutrophils # (1.3-7.7) k/uL Lymphocytes # (1.0-4.8) k/uL Monocytes # (0-1.0) k/uL Eosinophils # (0-0.7) k/uL Basophils # (0-0.2) k/uL PT (9.0-12.0) sec INR (<1.2) APTT (22.0-30.0) sec D-Dimer (<0.60) mg/L FEU Sodium (137-145) mmol/L Potassium (3.5-5.1) mmol/L Chloride (98-107) mmol/L Carbon Dioxide (22-30) mmol/L Anion Gap mmol/L BUN (7-17) mg/dL Creatinine (0.52-1.04) mg/dL Est GFR (CKD-EPI)AfAm (>60 ml/min/1.73 sqM) Est GFR (CKD-EPI)NonAf (>60 ml/min/1.73 sqM) Glucose (74-99) mg/dL Plasma Lactic Acid Red 1.9 (0.7-2.0) mmol/L Calcium (8.4-10.2) mg/dL Magnesium (1.6-2.3) mg/dL Total Bilirubin (0.2-1.3) mg/dL AST (14-36) U/L ALT (4-34) U/L Alkaline Phosphatase (38-126) U/L Lactate Dehydrogenase (313-618) U/L C-Reactive Protein (<1.0) mg/dL Total Protein (6.3-8.2) g/dL Albumin (3.5-5.0) g/dL Coronavirus (PCR) Detected A (Not Detectd) Disposition Clinical Impression: Fever, Cough, Dyspnea, COVID-19 Disposition: HOME SELF-CARE Condition: Good Instructions (If sedation given, give patient instructions): Coronavirus Disease 2019 (COVID-19) Additional Instructions: Please use medication as discussed. Please follow-up with family doctor in the next 2 days Please return to emergency room if the symptoms increase or worsen or for any other concerns. Is patient prescribed a controlled substance at d/c from ED?: No Referrals: Ray Gunn DO [Primary Care Provider] - 1-2 days Time of Disposition: 10:11
[2020-12-04 07:44] LABS: Basophils # (A) 0.1 k/uL (0-0.2); Basophils % (A) 1 %; Eosinophils # (A) 0.1 k/uL (0-0.7); Eosinophils % (A) 2 %; HCT 48.5 % (34.0-46.0); HGB 16.3 gm/dL (11.4-16.0); Lymphocytes # (A) 1.8 k/uL (1.0-4.8); Lymphocytes % (A) 23 %; MCH 30.1 pg (25.0-35.0); MCHC 33.7 g/dL (31.0-37.0); MCV 89.2 fL (80.0-100.0); Mean Platelet Volume 8.5; Monocytes # (A) 0.5 k/uL (0-1.0); Monocytes % (A) 6 %; Neutrophils # (A) 5.5 k/uL (1.3-7.7); Neutrophils % (A) 68 %; Platelet Count 194 k/uL (150-450); RBC 5.43 m/uL (3.80-5.40); RDW 12.9 % (11.5-15.5)
[2020-12-04 07:54] LABS: Potassium 4.1 mmol/L (3.5-5.1)
[2020-12-04 07:56] LABS: ALT 50 U/L (4-34); AST 49 U/L (14-36); African American GFR (CKD) >90 (>60 ml/min/1.73 sqM); Albumin 3.9 g/dL (3.5-5.0); Alkaline Phosphatase 96 U/L (38-126); Anion Gap 10 mmol/L; Blood Urea Nitrogen 13 mg/dL (7-17); C Reactive Protein 1.5 mg/dL (<1.0); Calcium 9.1 mg/dL (8.4-10.2); Carbon Dioxide 22 mmol/L (22-30); Chloride 104 mmol/L (98-107); Glucose 209 mg/dL (74-99); LDH 568 U/L (313-618); Magnesium 1.8 mg/dL (1.6-2.3); Non-African American GFR(CKD) >90 (>60 ml/min/1.73 sqM); Sodium 136 mmol/L (137-145); Total Bilirubin 0.5 mg/dL (0.2-1.3); Total Protein 6.9 g/dL (6.3-8.2)
[2020-12-04 07:57] LABS: D-Dimer 0.37 mg/L FEU (<0.60); INR 0.9 (<1.2); Partial Thromboplastin Time 23.3 sec (22.0-30.0); Prothrombin Time 10.1 sec (9.0-12.0)
--- NOTE | 2020-12-04 08:02 | XR ---
EXAMINATION TYPE: XR chest 1V portable DATE OF EXAM: 12/04/2020 Comparison: 03/10/2016 Clinical History: 60-year-old female Suspected COVID-19 pneumonia Findings: Large patient body habitus and portable technique limits evaluation. Heart normal size. Aorta and pul monary vasculature within normal limits. Unable to exclude subtle early opacity at the left base. Fin dings may reflect density from overlying soft tissue. Follow-up can be considered. Impression: Portable exam further limited by large body habitus. Unable to exclude a subtle early infiltrate at t he left base. Findings may be due to overlying soft tissue. Follow-up can be considered.
[2020-12-04] MEDS ORDERED: BAMLANIVIMAB (EUA) 700 MG, ETESEVIMAB (EUA) 1,400 MG in SODIUM CHLORIDE 0.9% 50 ML IVPB ONE (09:00)
[2020-12-04 09:13] VITALS: RESP 18
[2020-12-04] MEDS ORDERED: SODIUM CHLORIDE 0.9% 50 ML IVPB ONE (09:30)
[2020-12-04 10:42] VITALS: BP 141/83; PULSE 79; TEMP 98.2
[2020-12-05 01:35] LABS: Ferritin 325.3 ng/mL (10.0-291.0)
== END 2020-12-04 10:40 | disposition home or self-care (01) ==
LOC: EC 06:59
DX: U07.1 COVID-19 (principal); E11.9 Type 2 diabetes mellitus without complications; I10 Essential (primary) hypertension; G47.33 Obstructive sleep apnea (adult) (pediatric); J45.909 Unspecified asthma, uncomplicated; Z79.890 Hormone replacement therapy; Z79.899 Other long term (current) drug therapy; Z88.0 Allergy status to penicillin; Z88.1 Allergy status to other antibiotic agents; Z88.2 Allergy status to sulfonamides; Z88.5 Allergy status to narcotic agent; Z91.048 Other nonmedicinal substance allergy status; Z85.850 Personal history of malignant neoplasm of thyroid; Z83.3 Family history of diabetes mellitus; Z99.89 Dependence on other enabling machines and devices
CPT/HCPCS: 36415; 93005; 85379; 80053; 82728; 83605; 83615; 83735; 85025; 85610; 85730; 86140; 87040; 84145; 87635; 71045; 99285; 96365; 96375; 96361; J1885; Q0245

== ENCOUNTER → 2021-04-26 | Outpatient (CLI) | payer MEDICAID, OTHER | END | disposition home or self-care (01) | LOC: LABMAIN 11:34 | PROVIDERS: ATTEND Emergency Medicine | DX: Z03.818 Encounter for observation for suspected exposure to other biological agents ruled out (principal); Z20.822 Contact with and (suspected) exposure to COVID-19 | CPT/HCPCS: 87635 ==

== ENCOUNTER → 2021-04-27 | Outpatient (CLI) | payer MEDICAID, OTHER | END | disposition home or self-care (01) | LOC: LABWHC1 11:32 | PROVIDERS: ATTEND Emergency Medicine | DX: Z20.822 Contact with and (suspected) exposure to COVID-19 (principal) | CPT/HCPCS: 87635 ==

== ENCOUNTER → 2021-05-12 | Outpatient (CLI) | payer MEDICAID ==
--- NOTE | 2021-05-12 11:31 | MM ---
Reason for exam: additional evaluation requested from prior study. Last mammogram was performed 3 years and 11 months ago. History: Patient is postmenopausal and has history of other cancer at age 46. Family history of breast cancer in paternal aunt. Reduction of the left breast, 1991. Reduction of the right breast. Physical Findings: Nurse did not find any significant physical abnormalities on exam. MG 3D Diag Mammo W/Cad KAVIN Bilateral CC and MLO view(s) were taken. Prior study comparison: June 22, 2017, bilateral MG 3d screening mammo w/cad. February 09, 2012, CAD bilateral diagnostic mammogram. There are scattered fibroglandular densities. Stable benign calcifications. There is no discrete abnormality. No significant new findings when compared with previous films. These results were verbally communicated with the patient and result sheet given to the patient on 05/12/21. ASSESSMENT: Benign, BI-RAD 2 RECOMMENDATION: Routine screening mammogram of both breasts in 1 year.
== END | disposition home or self-care (01) ==
LOC: RADMAMWWP 10:21
PROVIDERS: ATTEND Family Medicine
DX: N64.4 Mastodynia (principal)
CPT/HCPCS: 77062; 77066

== ENCOUNTER → 2021-07-28 | Outpatient (CLI) | payer MEDICAID ==
[2021-07-28 07:52] LABS: African American GFR (CKD) >90 (>60 ml/min/1.73 sqM); Blood Urea Nitrogen 13 mg/dL (7-17); Non-African American GFR(CKD) >90 (>60 ml/min/1.73 sqM)
--- NOTE | 2021-07-28 09:18 | CT ---
EXAMINATION TYPE: CT chest wo/w con DATE OF EXAM: 07/28/2021 COMPARISON: Chest CT September 21, 2017 HISTORY: Pulmonary nodule, prior abnormal CT. CT DLP: 1234 mGycm. Automated Exposure Control for Dose Reduction was Utilized. TECHNIQUE: CT scan of the thorax is performed following without and with IV Contrast, patient inject ed with 100 ml mL of Isovue 300. FINDINGS: LUNGS: Scattered micronodules are redemonstrated. New 3 mm left lower lobe peripheral nodule axial im age 36. For reference stable 3 mm right mid to lower lung peripheral nodule axial image 30. No new gr eater than 5 mm noncalcified pulmonary nodules. Stable 4 mm superior right lower lobe nodule axial im age 22. Persistent vesicles lobe/fissure. No new consolidation. No pleural effusion or pneumothorax s een bilaterally. MEDIASTINUM: There are no greater than 1 cm hilar or mediastinal lymph nodes. No cardiomegaly or pe ricardial effusion is seen. OTHER: Diffuse fatty infiltration of liver redemonstrated. Splenule anterior splenic hilum again seen . IMPRESSION: Scattered small nodules redemonstrated. No new greater than 5 mm pulmonary nodules.
== END | disposition home or self-care (01) ==
LOC: RADCTMAIN 06:46
PROVIDERS: ATTEND Family Medicine
DX: R91.1 Solitary pulmonary nodule (principal)
CPT/HCPCS: 82565; 84520; 71270; 36415; Q9967

== ENCOUNTER → 2022-05-02 | Outpatient (CLI) | payer MEDICAID ==
--- NOTE | 2022-05-03 10:57 | CT ---
EXAMINATION TYPE: CT abdomen pelvis wo con DATE OF EXAM: 05/02/2022 COMPARISON: 09/05/2017 INDICATION: bilateral flank pain DLP: 1049 mGycm, Automated exposure control for dose reduction was used. CONTRAST: 0 mL of Isovue 300. Study performed without Oral Contrast TECHNIQUE: Axial images were obtained from above the diaphragm to the pubic rami in the axial plane a t 5 mm thick sections. Reconstructed images are reviewed on the computer in the coronal plane. FINDINGS: Limited CT sections are obtained the lung bases. The lung bases are clear. CT ABDOMEN: Liver: There is moderate fatty infiltration throughout the liver. Spleen: Normal. A splenule is along the anterior medial margin of the spleen. Pancreas: Normal Adrenal glands: The adrenal glands are normal. Gallbladder: Normal Kidneys: No masses are evident. No hydronephrosis is present. No cysts are present. No renal stone s are evident. Aorta: Minimal vascular calcification within the aorta. Inferior vena cava: Normal. CT PELVIS: Loops of bowel within the abdomen and pelvis are normal. The study is performed without oral cont rast limiting bowel evaluation. Appendix: Normal as visualized. Urinary bladder: Normal. Genitourinary structures: Uterus is unremarkable. Adnexa are normal. No free fluid is within the pelv is. Osseous structures: No suspicious lytic or sclerotic lesions. IMPRESSIONS: 1. No suspicious abnormality to account for flank pain. Follow-up studies can be performed as clinic ally indicated. 2. Moderate fatty infiltration throughout the liver.
== END | disposition home or self-care (01) ==
LOC: RADCTMAIN 12:26
PROVIDERS: ATTEND Family Medicine
DX: K76.0 Fatty (change of) liver, not elsewhere classified (principal)
CPT/HCPCS: 74176

== ENCOUNTER → 2023-01-10 | Outpatient (CLI) | payer MEDICAID ==
--- NOTE | 2023-01-10 09:13 | XR ---
EXAMINATION TYPE: XR lumbar spine 2 or 3V DATE OF EXAM: 01/10/2023 8:23 AM INDICATION: Patient age:Female; 62 years old; Reason for study: M47.9 spondylosis; COMPARISON: CT 05/02/2022 TECHNIQUE: Frontal, lateral and coned in L5-S1 lateral views of the spine. FINDINGS: No evidence of any acute osseous pathology. No evidence of loss of vertebral body height i s seen. There is normal alignment of the lumbar vertebral bodies. Mild scattered disc space narrowing . Multilevel marginal osteophyte formation throughout the visualized spine. There is facet joint arth ropathy throughout the spine. Scattered at least mild neural foraminal stenosis. IMPRESSION: 1. No acute fracture. No evidence of spondylolysis. 2. Mild multilevel disc degeneration.
[2023-01-10 10:56] LABS: HCT 48.1 % (37.2-46.3); HGB 15.8 g/dL (12.0-15.0); MCH 29.6 pg (27.0-32.0); MCHC 32.8 g/dL (32.0-37.0); MCV 90.2 fL (80.0-97.0); Mean Platelet Volume 10.6 fL (9.5-12.2); NRBC Per 100 WBC 0 /100 WBCS (0.0-0.0); Platelet Count 262 X 10*3/uL (140-440); RBC 5.33 X 10*6/uL (4.10-5.20); RDW 12.7 % (11.5-14.5); WBC 9.26 X 10*3/uL (4.50-10.00)
[2023-01-10 11:16] LABS: ALT 24 U/L (8-44); AST 16 U/L (13-35); African American GFR (CKD) 87.8 (60.0-200.0); Alkaline Phosphatase 93 U/L (41-126); BUN/Creat Ratio 18.61 Ratio (12.00-20.00); Blood Urea Nitrogen 15.5 mg/dL (9.0-27.0); Calcium 9.5 mg/dL (8.7-10.3); Carbon Dioxide 27.9 mmol/L (20.0-27.5); Chloride 104 mmol/L (96-109); Globulin 2.4 g/dL (1.6-3.3); Glucose 124 mg/dL (70-110); LDL Cholesterol,Calculated 82.9 mg/dL (0.0-131.0); Non-African American GFR(CKD) 75.8 (60.0-200.0); Potassium 3.8 mmol/L (3.5-5.5); Sodium 141 mmol/L (135-145); Total Protein 6.4 g/dL (6.2-8.2); Uric Acid 3.1 mg/dL (2.9-7.7)
== END | disposition home or self-care (01) ==
LOC: LABWHC1 07:14
PROVIDERS: ATTEND Nurse Practitioner Family
DX: Z00.00 Encounter for general adult medical examination without abnormal findings (principal); M79.671 Pain in right foot; E11.9 Type 2 diabetes mellitus without complications; M79.672 Pain in left foot; M47.9 Spondylosis, unspecified; M51.36 Other intervertebral disc degeneration, lumbar region
CPT/HCPCS: 36415; 72100; 80053; 80061; 84439; 84443; 84550; 85027; 86140

== ENCOUNTER → 2023-01-20 | Outpatient (CLI) | payer MEDICAID ==
--- NOTE | 2023-01-23 19:17 | MM ---
Reason for Exam: Screening (asymptomatic). Last mammogram was performed 1 year(s) and 9 month(s) ago. Patient History: Menarche at age 17. First Full-Term at age 23. Postmenopausal. Other cancer, age 46. Reduction on the Right side. 1991, Reduction on the Left side. Paternal aunt had breast cancer. Risk Values: Patti 5 year model risk: 1.2%. NCI Lifetime model risk: 5.8%. Prior Study Comparison: 02/09/2012 Bilateral Diagnostic Mammogram, [facility]. 06/22/2017 Bilateral Screening Mammogram, [facility]. 05/12/2021 Bilateral Diagnostic Mammogram, [facility]. Tissue Density: There are scattered fibroglandular densities. Findings: Analyzed By CAD. Pattern appears symmetrical and stable. No significant interval change is evident. Scattered benign-appearing calcifications are present. No suspicious groups of microcalcifications, spiculated or lobular masses, architectural distortion or other secondary signs of malignancy are mammographically apparent. Overall Assessment: Benign, BI-RAD 2 Management: Screening Mammogram of both breasts in 1 year. A negative mammogram report should not preclude additional follow up of suspicious palpable abnormalities. Patient should continue monthly self breast exam. A clinical breast exam by your physician is recommended on an annual basis and results should be correlated with mammographic findings. Electronically signed and approved by: Denzel Valladares D.O. Radiologis
== END | disposition home or self-care (01) ==
LOC: RADMAMWWP 15:53
PROVIDERS: ATTEND Family Medicine
DX: Z12.31 Encounter for screening mammogram for malignant neoplasm of breast (principal); Z78.0 Asymptomatic menopausal state; Z80.3 Family history of malignant neoplasm of breast
CPT/HCPCS: 77063; 77067

== ENCOUNTER 2023-01-26 03:53 | Emergency (ER) | payer MEDICAID ==
[2023-01-26 04:02] VITALS: BP 135/88; PULSE 90; RESP 18; TEMP 98.2
--- NOTE | 2023-01-26 04:41 | ED ---
General Adult HPI - General Chief complaint: Upper Respiratory Infection Stated complaint: COUGH,CONJESTION,SORE THROAT Time Seen by Provider: 01/26/23 04:05 Source: patient Mode of arrival: ambulatory Limitations: no limitations - History of Present Illness Initial comments: This is a 62-year-old female with a past medical history including hypertension and diabetes presented to the emergency department for body aches, cough and chills. The patient stated that the symptoms began on Monday and seemed to be doing worse. The patient stated that she did not have any recent sick contacts but stated that she had continued body aches, congestion as well as feeling "like I have pneumonia again." The patient did state that she has had pneumonia multiple times in the past and it feels similar to that. The patient stated that she is taking [id number] medications without any relief. The patient denied any other acute pain or complaints at this time. - Related Data Home Medications Medication Instructions Recorded Confirmed Levothyroxine Sodium [Synthroid] 200 mcg PO DAILY 07/17/14 09/05/17 Losartan-Hctz 50-12.5 mg [Hyzaar 1 tab PO DAILY 07/17/14 09/05/17 50-12.5] Previous Rx's Medication Instructions Recorded Escitalopram [Lexapro] 10 mg PO DAILY tab 06/10/16 levoFLOXacin [Levaquin] 750 mg PO DAILY #7 tab 09/05/17 Benzonatate [Tessalon Perles] 100 mg PO TID PRN #30 capsule 01/26/23 Allergies Allergy/AdvReac Type Severity Reaction Status Date / Time moxifloxacin HCl Allergy Intermediate Rash/Hives Verified 01/26/23 04:03 [From Avelox] Sulfa (Sulfonamide Allergy Intermediate Rash/Hives Verified 01/26/23 04:03 Antibiotics) sodium nitrite AdvReac Severe MIGRAINE Verified 01/26/23 04:03 Penicillins AdvReac Unknown Verified 01/26/23 04:03 NARCOTICS AdvReac Severe Nausea Uncoded 01/26/23 04:03 Review of Systems ROS Statement: Those systems with pertinent positive or pertinent negative responses have been documented in the HPI. ROS Other: All systems not noted in ROS Statement are negative. Past Medical History Past Medical History: Asthma, Cancer, Hypertension, Pneumonia, Sleep Apnea/CPAP/BIPAP Additional Past Medical History / Comment(s): Thyroid cancer status post radiation and thyroidectomy, skin cancer with removal, CHELSEA with CPAP (pt did not bring with her because normally she tolerates it well but last couple nights has not been able to tolerate), 2009 pneumonia, IBS. History of Any Multi-Drug Resistant Organisms: None Reported Past Surgical History: Adenoidectomy, Breast Surgery, Heart Catheterization, Tonsillectomy Additional Past Surgical History / Comment(s): Total thyroidectomy, skin cancer removal from nose and forehead, bilateral breast reductions, normal cardiac cath, colonoscopy. Past Anesthesia/Blood Transfusion Reactions: Previous Problems w/ Anesthesia, Motion Sickness Additional Past Anesthesia/Blood Transfusion Reaction / Comment(s): DIFFICULT INTUBATION. Pt received blood with breast surgery without reaction. Past Psychological History: Anxiety, Depression Smoking Status: Former smoker Past Alcohol Use History: Occasional Past Drug Use History: None Reported - Past Family History Father Family Medical History: Diabetes Mellitus, Myocardial Infarction (GA) Additional Family Medical History / Comment(s): Father had 4-5 GA's with his first GA at the age of 78yrs. He lived to be 82 yrs old. Mother Family Medical History: Cancer Additional Family Medical History / Comment(s): Mother is 77 yrs old and has end stage pancreatic cancer. General Exam Limitations: no limitations General appearance: alert, in no apparent distress Head exam: Present: atraumatic, normocephalic, normal inspection Eye exam: Present: normal appearance, PERRL Pupils: Present: normal accommodation ENT exam: Present: normal exam, normal oropharynx, mucous membranes moist Neck exam: Present: normal inspection, full ROM Respiratory exam: Present: normal lung sounds bilaterally Cardiovascular Exam: Present: regular rate, normal rhythm, normal heart sounds GI/Abdominal exam: Present: soft, normal bowel sounds Extremities exam: Present: normal inspection, full ROM Back exam: Present: normal inspection, full ROM Neurological exam: Present: alert, oriented X3, CN II-XII intact Psychiatric exam: Present: normal affect, normal mood Skin exam: Present: warm, dry Course Vital Signs 01/26/23 03:55 Temperature 98.2 F Pulse Rate 90 Respiratory 18 Rate Blood Pressure 135/88 O2 Sat by Pulse 97 Oximetry Medical Decision Making - Medical Decision Making Was pt. sent in by a medical professional or institution (, PA, DATA MINER, urgent care, hospital, or longterm...) When possible be specific @ -No Did you speak to anyone other than the patient for history (EMS, parent, family, police, friend...)? What history was obtained from this source @ -No Did you review nursing and triage notes (agree or disagree)? Why? @ -I reviewed and agree with nursing and triage notes Were old charts reviewed (outside hosp., previous admission, EMS record, old EKG, old radiological studies, urgent care reports/EKG's, longterm records)? Report findings @ -No old charts were reviewed Differential Diagnosis (chest pain, altered mental status, abdominal pain women, abdominal pain men, vaginal bleeding, weakness, fever, dyspnea, syncope, headache, dizziness, GI bleed, back pain, seizure, CVA, palpatations, mental health)? @ -COVID-19, influenza, pneumonia EKG interpreted by me (3pts min.). @ -As above X-rays interpreted by me (1pt min.). @ -Chest x-ray was obtained and was interpreted by myself showing no acute process. CT interpreted by me (1pt min.). @ -None done U/S interpreted by me (1pt. min.). @ -None done What testing was considered but not performed or refused? (CT, X-rays, U/S, labs)? Why? @ -None What meds were considered but not given or refused? Why? @ -None Did you discuss the management of the patient with other professionals (professionals i.e. , PA, DATA MINER, lab, RT, psych nurse, social work nurse, company manager, teacher, campus police officer, telephonic case manager)? Give summary @ -No Was smoking cessation discussed for >3mins.? @ -No Was critical care preformed (if so, how long)? @ -No Were there social determinants of health that impacted care today? How? (Homelessness, low income, unemployed, alcoholism, drug addiction, transportation, low edu. Level, literacy, decrease access to med. care, half-way, rehab)? @ -No Was there de-escalation of care discussed even if they declined (Discuss DNR or withdrawal of care, Hospice)? DNR status @ -No What co-morbidities impacted this encounter? (DM, HTN, Smoking, COPD, CAD, Cancer, CVA, ARF, Chemo, Hep., AIDS, mental health diagnosis, sleep apnea, morbid obesity)? @ -Hypertension, diabetes Was patient admitted / discharged? Hospital course, mention meds given and route, prescriptions, significant lab abnormalities, going to OR and other pertinent info. @ -The patient was seen and evaluated emergency department. Physical exam, the patient was resting in bed without any acute distress. Vital signs admission were stable. Swabs for COVID-19, influenza and RSV were negative. Chest x-ray was negative. The patient likely had an upper respiratory infection and was given a prescription for Tessalon Perles for her cough. The patient was advised to follow-up with her primary care physician for further workup and evaluation and to report back to the emergency department if her symptoms became acutely worse. The patient was agreeable to this and all of her questions were answered appropriately. The patient was discharged home in stable condition. Undiagnosed new problem with uncertain prognosis? @ -No Drug Therapy requiring intensive monitoring for toxicity (Heparin, Nitro, Insulin, Cardizem)? @ -No Were any procedures done? @ -No Diagnosis/symptom? @ -Upper respiratory infection Acute, or Chronic, or Acute on Chronic? @ -Acute Uncomplicated (without systemic symptoms) or Complicated (systemic symptoms)? @ -Uncomplicated Side effects of treatment? @ -No Exacerbation, Progression, or Severe Exacerbation? @ -No Poses a threat to life or bodily function? How? (Chest pain, USA, GA, pneumonia, PE, COPD, DKA, ARF, appy, cholecystitis, CVA, Diverticulitis, Homicidal, Suicidal, threat to staff... and all critical care pts) @ -No - Lab Data Lab Results 01/26/23 Range/Units 04:18 Influenza Type A (PCR) Not Detected (Not Detectd) Influenza Type B (PCR) Not Detected (Not Detectd) RSV (PCR) Not Detected (Not Detectd) SARS-CoV-2 (PCR) Not Detected (Not Detectd) Disposition Clinical Impression: Upper respiratory infection Disposition: HOME SELF-CARE Condition: Stable Instructions (If sedation given, give patient instructions): Upper Respiratory Infection (ED) Prescriptions: Benzonatate [Tessalon Perles] 100 mg PO TID PRN #30 capsule PRN Reason: Cough Is patient prescribed a controlled substance at d/c from ED?: No Referrals: Ray Gunn DO [STAFF PHYSICIAN] - 1-2 days Time of Disposition: 05:40
[2023-01-26] MEDS ORDERED: BENZONATATE 100 MG CAP PO STA (05:45)
--- NOTE | 2023-01-26 06:24 | XR ---
EXAMINATION TYPE: XR chest 2V DATE OF EXAM: 01/26/2023 COMPARISON: 12/04/2020 HISTORY: Shortness of breath TECHNIQUE: Frontal and lateral views of the chest are obtained. FINDINGS: Scattered senescent parenchymal changes noted. No evidence for infiltrate. No evidence for atelectasis. Heart size is stable. Mediastinal structures are stable and grossly unremarkable. No evidence for hilar prominence. Degenerative changes dorsal spine. IMPRESSION: 1. No evidence for acute pulmonary disease.
== END 2023-01-26 05:59 | disposition home or self-care (01) ==
LOC: EC 03:53
DX: J06.9 Acute upper respiratory infection, unspecified (principal); J45.909 Unspecified asthma, uncomplicated; I10 Essential (primary) hypertension; E11.9 Type 2 diabetes mellitus without complications; F32.A Depression, unspecified; F41.9 Anxiety disorder, unspecified; Z87.891 Personal history of nicotine dependence; Z88.0 Allergy status to penicillin; Z88.1 Allergy status to other antibiotic agents; Z88.2 Allergy status to sulfonamides; Z88.5 Allergy status to narcotic agent; Z79.890 Hormone replacement therapy; Z79.899 Other long term (current) drug therapy; Z20.822 Contact with and (suspected) exposure to COVID-19
CPT/HCPCS: 71046; 87636; 99283

== ENCOUNTER 2023-01-28 08:56 | Emergency (ER) | payer MEDICAID ==
[2023-01-28 09:06] VITALS: BP 167/92; PULSE 104; RESP 16; TEMP 98.6
--- NOTE | 2023-01-28 09:17 | ED ---
General Adult HPI - General Chief complaint: ENT Stated complaint: sore throat,ear pain Time Seen by Provider: 01/28/23 09:11 Source: patient Mode of arrival: ambulatory Limitations: no limitations - History of Present Illness Initial comments: Nontoxic-appearing 62-year-old female presents to the emergency room ambulatory with complaints of left ear pain and sinus pressure with cough and sore throat since Monday. States was seen here 2 days ago in the emergency room diagnosed with a viral upper respiratory infection. Patient states that she does not believe it is viral and needs antibiotics. Medical history of adenoidectomy tonsillectomy, asthma hypertension and thyroid cancer. -: days(s) (6) Location: head (left ear) Severity scale (1-10): 8 Quality: aching, constant Consistency: constant Associated Symptoms: cough, other (congestion , left ear ache) - Related Data Home Medications Medication Instructions Recorded Confirmed Levothyroxine Sodium [Synthroid] 200 mcg PO DAILY 07/17/14 09/05/17 Losartan-Hctz 50-12.5 mg [Hyzaar 1 tab PO DAILY 07/17/14 09/05/17 50-12.5] Previous Rx's Medication Instructions Recorded Escitalopram [Lexapro] 10 mg PO DAILY tab 06/10/16 levoFLOXacin [Levaquin] 750 mg PO DAILY #7 tab 09/05/17 Benzonatate [Tessalon Perles] 100 mg PO TID PRN #30 capsule 01/26/23 Amoxicillin 875 mg PO Q12HR 7 Days #14 tablet 01/28/23 Allergies Allergy/AdvReac Type Severity Reaction Status Date / Time moxifloxacin HCl Allergy Intermediate Rash/Hives Verified 01/28/23 09:04 [From Avelox] Sulfa (Sulfonamide Allergy Intermediate Rash/Hives Verified 01/28/23 09:04 Antibiotics) sodium nitrite AdvReac Severe MIGRAINE Verified 01/28/23 09:04 Penicillins AdvReac Unknown Verified 01/28/23 09:04 NARCOTICS AdvReac Severe Nausea Uncoded 01/28/23 09:04 Review of Systems ROS Statement: Those systems with pertinent positive or pertinent negative responses have been documented in the HPI. ROS Other: All systems not noted in ROS Statement are negative. Past Medical History Past Medical History: Asthma, Cancer, Hypertension, Pneumonia, Sleep Apnea/CPAP/BIPAP Additional Past Medical History / Comment(s): Thyroid cancer status post radiation and thyroidectomy, skin cancer with removal, CHELSEA with CPAP (pt did not bring with her because normally she tolerates it well but last couple nights has not been able to tolerate), 2009 pneumonia, IBS. History of Any Multi-Drug Resistant Organisms: None Reported Past Surgical History: Adenoidectomy, Breast Surgery, Heart Catheterization, Tonsillectomy Additional Past Surgical History / Comment(s): Total thyroidectomy, skin cancer removal from nose and forehead, bilateral breast reductions, normal cardiac cath, colonoscopy. Past Anesthesia/Blood Transfusion Reactions: Previous Problems w/ Anesthesia, Motion Sickness Additional Past Anesthesia/Blood Transfusion Reaction / Comment(s): DIFFICULT INTUBATION. Pt received blood with breast surgery without reaction. Past Psychological History: Anxiety, Depression Smoking Status: Former smoker Past Alcohol Use History: Occasional Past Drug Use History: None Reported - Past Family History Father Family Medical History: Diabetes Mellitus, Myocardial Infarction (MO) Additional Family Medical History / Comment(s): Father had 4-5 MO's with his first MO at the age of 78yrs. He lived to be 82 yrs old. Mother Family Medical History: Cancer Additional Family Medical History / Comment(s): Mother is 77 yrs old and has end stage pancreatic cancer. General Exam Limitations: no limitations Course Vital Signs 01/28/23 09:04 Temperature 98.6 F Pulse Rate 104 H Respiratory 16 Rate Blood Pressure 167/92 O2 Sat by Pulse 94 L Oximetry Medical Decision Making - Medical Decision Making Was pt. sent in by a medical professional or institution (, PA, PRESSURE TEST OPERATOR, urgent care, hospital, or care home...) When possible be specific @ -No Did you speak to anyone other than the patient for history (EMS, parent, family, police, friend...)? What history was obtained from this source @ -No Did you review nursing and triage notes (agree or disagree)? Why? @ -I reviewed and agree with nursing and triage notes Were old charts reviewed (outside hosp., previous admission, EMS record, old EKG, old radiological studies, urgent care reports/EKG's, care home records)? Report findings @ -Yes previous ER visit Differential Diagnosis (chest pain, altered mental status, abdominal pain women, abdominal pain men, vaginal bleeding, weakness, fever, dyspnea, syncope, headache, dizziness, GI bleed, back pain, seizure, CVA, palpatations, mental health, musculoskeletal)? @ -Otitis media, sinusitis, URI EKG interpreted by me (3pts min.). @ -n/a X-rays interpreted by me (1pt min.). @ -None done CT interpreted by me (1pt min.). @ -None done U/S interpreted by me (1pt. min.). @ -None done What testing was considered but not performed or refused? (CT, X-rays, U/S, labs)? Why? @ -None What meds were considered but not given or refused? Why? @ -None Did you discuss the management of the patient with other professionals (professionals i.e. Dr., PA, PRESSURE TEST OPERATOR, lab, RT, psych nurse, psychiatric social worker, arc air operator, teacher, chief financial officer, renal case manager)? Give summary @ -No Was smoking cessation discussed for >3mins.? @ -No Was critical care preformed (if so, how long)? @ -No Were there social determinants of health that impacted care today? How? (Homelessness, low income, unemployed, alcoholism, drug addiction, transportation, low edu. Level, literacy, decrease access to med. care, halfway, rehab)? @ -No Was there de-escalation of care discussed even if they declined (Discuss DNR or withdrawal of care, Hospice)? DNR status @ -No What co-morbidities impacted this encounter? (DM, HTN, Smoking, COPD, CAD, Cancer, CVA, ARF, Chemo, Hep., AIDS, mental health diagnosis, sleep apnea, morbid obesity)? @ -History of asthma, hypertension, thyroid cancer, adenoid and tonsillectomy, anxiety, depression Was patient admitted / discharged? Hospital course, mention meds given and route, prescriptions, significant lab abnormalities, going to OR and other pertinent info. @ -Discharged Nontoxic-appearing 62-year-old female presents to the emergency room ambulatory with complaints of left ear pain and sinus pressure with cough and sore throat since Monday. States was seen here 2 days ago in the emergency room diagnosed with a viral upper respiratory infection. Patient states that she does not believe it is viral and needs antibiotics. Patient seen on 01/26 for complaints of body aches, and chills. Swabs negative for Covid, influenza, RSV. Chest x-ray was negative for acute process. Diagnosed with upper respiratory infection given a prescription for Tessalon Perles for her cough and directed to follow up with her primary care doctor On physical exam patient does have a left otitis media. She was prescribed amoxicillin and directed to follow with her primary care doctor next week. She is agreeable to this plan of care. I also suggested that she use Flonase for sinusitis Case discussed with Dr. Alaniz Undiagnosed new problem with uncertain prognosis? @ -No Drug Therapy requiring intensive monitoring for toxicity (Heparin, Nitro, Insulin, Cardizem)? @ -No Were any procedures done? @ -No Diagnosis/symptom? @ -Acute left otitis media Acute, or Chronic, or Acute on Chronic? @ -Acute Uncomplicated (without systemic symptoms) or Complicated (systemic symptoms)? @ -Uncomplicated Side effects of treatment? @ -No Exacerbation, Progression, or Severe Exacerbation? @ -No Poses a threat to life or bodily function? How? (Chest pain, USA, MO, pneumonia, PE, COPD, DKA, ARF, appy, cholecystitis, CVA, Diverticulitis, Homicidal, Suicidal, threat to staff... and all critical care pts) @ -No Disposition Clinical Impression: Acute otitis media Disposition: HOME SELF-CARE Condition: Good Instructions (If sedation given, give patient instructions): Sinusitis (ED), Ear Infection (ED) Additional Instructions: Take antibiotics as prescribed for ear infection. Tylenol and or Motrin as needed for any pain or discomfort. You can use nasal lavage for your sinus congestion. Flonase may also improve your symptoms. Follow-up with your primary care doctor next week. Return to the emergency room with any new or concerning symptoms. Prescriptions: Amoxicillin 875 mg PO Q12HR 7 Days #14 tablet Is patient prescribed a controlled substance at d/c from ED?: No Referrals: Kathrine Gibson NPC [REFERRING] - 1-2 days Time of Disposition: 09:38
[2023-01-28] MEDS ORDERED: AMOXICILLIN 875 MG TAB PO STA (09:38)
== END 2023-01-28 10:47 | disposition home or self-care (01) ==
LOC: EC 08:56
DX: H66.92 Otitis media, unspecified, left ear (principal); J45.909 Unspecified asthma, uncomplicated; I10 Essential (primary) hypertension; G47.30 Sleep apnea, unspecified; F41.9 Anxiety disorder, unspecified; F32.A Depression, unspecified; Z87.891 Personal history of nicotine dependence; Z79.899 Other long term (current) drug therapy; Z88.6 Allergy status to analgesic agent; Z88.2 Allergy status to sulfonamides; Z88.0 Allergy status to penicillin; Z88.5 Allergy status to narcotic agent; Z88.8 Allergy status to other drugs, medicaments and biological substances
CPT/HCPCS: 99283

== ENCOUNTER → 2023-08-24 | Outpatient (CLI) | payer MEDICAID ==
--- NOTE | 2023-08-24 17:59 | XR ---
EXAMINATION TYPE: XR chest 2V DATE OF EXAM: 08/24/2023 COMPARISON: 01/26/2023 INDICATION: Cough and congestion TECHNIQUE: Frontal and lateral views of the chest are obtained. FINDINGS: The heart size is normal. The pulmonary vasculature is normal. The lungs are clear. IMPRESSION: 1. No acute pulmonary process.
== END | disposition home or self-care (01) ==
LOC: RADXRMAIN 17:31
PROVIDERS: ATTEND Emergency Medicine
DX: R05.9 Cough, unspecified (principal); R09.89 Other specified symptoms and signs involving the circulatory and respiratory systems
CPT/HCPCS: 71046

== ENCOUNTER → 2023-08-24 | Outpatient (CLI) | payer MEDICAID | END | disposition home or self-care (01) | LOC: LABMAIN 13:57 | PROVIDERS: ATTEND Physician Assistant | DX: Z20.822 Contact with and (suspected) exposure to COVID-19 (principal); R50.9 Fever, unspecified; R06.02 Shortness of breath | CPT/HCPCS: 87635; 87636 ==

== ENCOUNTER → 2024-06-19 | Outpatient (CLI) | payer MEDICAID ==
--- NOTE | 2024-06-24 13:18 | MM ---
Reason for Exam: Screening (asymptomatic). Last mammogram was performed 1 year(s) and 5 month(s) ago. Patient History: Menarche at age 17. First Full-Term at age 23. Postmenopausal. Other cancer, age 46. Reduction on the Right side. 1992, Reduction on the Left side. Paternal aunt had breast cancer. Risk Values: Patti 5 year model risk: 1.2%. NCI Lifetime model risk: 5.7%. Prior Study Comparison: 06/22/2017 Bilateral Screening Mammogram, [facility]. 05/12/2021 Bilateral Diagnostic Mammogram, [facility]. 01/20/2023 Bilateral MG 3D screening mammo w/cad, [facility]. Tissue Density: There are scattered areas of fibroglandular density. Findings: Analyzed By CAD. Right breast: There is no suspicious group of microcalcifications or new suspicious mass. Benign-appearing calcifications right breast. Left breast: There is no suspicious group of microcalcifications or new suspicious mass. Benign-appearing calcifications left breast. Overall Assessment: Benign, BI-RAD 2 Management: Screening Mammogram of both breasts in [address] [facility] will attempt to contact patient to return for supplemental views and ultrasound if indicated. Patient should continue monthly self-breast exams. A clinical breast exam by your physician is recommended on an annual basis. This exam should not preclude additional follow-up of suspicious palpable abnormalities. Note on Patti scores and lifetime risk: 1. A Patti score greater than 3% is considered moderate risk. If this is the case, consider specialist referral to assess eligibility for a risk reducing agent. 2. If overall lifetime risk for the development of breast cancer is 20% or higher, the patient may qualify for future screening with alternating mammogram and breast MRI. [facility], , 06/24/2024 1:16 PM. Electronically signed and approved by: Dwayne Pollock DO
== END | disposition home or self-care (01) ==
LOC: RADMAMWWP 12:44
PROVIDERS: ATTEND Family Medicine
DX: Z12.31 Encounter for screening mammogram for malignant neoplasm of breast (principal); R92.323 Mammographic fibroglandular density, bilateral breasts; Z78.0 Asymptomatic menopausal state; Z80.3 Family history of malignant neoplasm of breast
CPT/HCPCS: 77063; 77067

== ENCOUNTER 2024-08-14 15:17 | Observation (INO) | payer MEDICAID ==
[2024-08-14] MEDS: PANTOPRAZOLE 40 MG/10 ML VIAL IVP STA (15:47)
[2024-08-14] MEDS: SODIUM CHLORIDE 0.9% 1,000 ML IV STA ×2 (15:47→22:05)
[2024-08-14 16:09] LABS: Basophils % (A) 0 %; Eosinophils # (A) 0.2 k/uL (0-0.7); Eosinophils % (A) 1 %; HCT 53.8 % (34.0-46.0); HGB 17.2 gm/dL (11.4-16.0); Lymphocytes # (A) 0.8 k/uL (1.0-4.8); Lymphocytes % (A) 5 %; MCH 29.7 pg (25.0-35.0); MCHC 32.1 g/dL (31.0-37.0); MCV 92.6 fL (80.0-100.0); Monocytes # (A) 0.8 k/uL (0-1.0); Monocytes % (A) 4 %; Neutrophils # (A) 15.3 k/uL (1.3-7.7); Neutrophils % (A) 89 %; Platelet Count 261 k/uL (150-450); RDW 13.2 % (11.5-15.5); WBC 17.2 k/uL (3.8-10.6)
[2024-08-14 16:23] LABS: ALT 25 U/L (4-34); AST 23 U/L (14-36); African American GFR (CKD) 88 (>60 ml/min/1.73 sqM); Albumin 4.3 g/dL (3.5-5.0); Alkaline Phosphatase 103 U/L (38-126); Amylase 53 U/L (30-110); Anion Gap 11 mmol/L; Blood Urea Nitrogen 20 mg/dL (7-17); Calcium 9.3 mg/dL (8.4-10.2); Carbon Dioxide 20 mmol/L (22-30); Chloride 107 mmol/L (98-107); Glucose 148 mg/dL (74-99); Lipase 226 U/L (23-300); Magnesium 2.1 mg/dL (1.6-2.3); Non-African American GFR(CKD) 77 (>60 ml/min/1.73 sqM); Potassium 4.3 mmol/L (3.5-5.1); Sodium 138 mmol/L (137-145); Total Bilirubin 0.6 mg/dL (0.2-1.3)
[2024-08-14 16:28] LABS: Partial Thromboplastin Time 22.4 sec (22.0-30.0); Prothrombin Time 11.3 sec (10.0-12.5)
--- NOTE | 2024-08-14 16:53 | ED ---
General Adult HPI - General Chief complaint: Nausea/Vomiting/Diarrhea Stated complaint: Flu symptoms Time Seen by Provider: 08/14/24 15:32 Source: patient, EMS, RN notes reviewed, old records reviewed Mode of arrival: EMS Limitations: no limitations - History of Present Illness Initial comments: Patient is a 64-year-old female who presents emergency department with persistent diarrhea. States she awoke early this morning and began having pe rsistent diarrhea that has been continuous since then. Possible norovirus. Endorses nausea but no emesis. Mostly diarrhea. States she feels lightheaded and did have a near syncopal episode in the shower earlier as well. Presents due to the persistent diarrhea. Endorses generalized abdominal cramping and pain. No history of abdominal surgeries. No other significant past medical history. No known sick contacts. Presents for further evaluation at this time. - Related Data Home Medications Medication Instructions Recorded Confirmed Losartan-Hctz 50-12.5 mg [Hyzaar 1 tab PO DAILY 07/17/14 08/14/24 50-12.5] Empagliflozin [Jardiance] 25 mg PO DAILY 08/14/24 08/14/24 Escitalopram [Lexapro] 10 mg PO HS 08/14/24 08/14/24 Levothyroxine Sodium [Synthroid] 175 mcg PO DAILY 08/14/24 08/14/24 Tirzepatide [Mounjaro] 5 mg SQ PENNY 08/14/24 08/14/24 Allergies Allergy/AdvReac Type Severity Reaction Status Date / Time moxifloxacin HCl Allergy Intermediate Rash/Hives Verified 08/14/24 18:09 [From Avelox] Sulfa (Sulfonamide Allergy Intermediate Rash/Hives Verified 08/14/24 18:09 Antibiotics) Penicillins Allergy Rash/Hives Verified 08/14/24 18:09 sodium nitrite AdvReac Severe MIGRAINE Verified 08/14/24 18:09 cephalexin [From Keflex] AdvReac yeast Verified 08/14/24 18:09 infections codeine AdvReac Nausea & Verified 08/14/24 18:09 Vomiting morphine AdvReac Nausea & Verified 08/14/24 18:09 Vomiting NARCOTICS AdvReac Severe Nausea Uncoded 01/28/23 09:04 Review of Systems ROS Statement: Those systems with pertinent positive or pertinent negative responses have been documented in the HPI. Review of Systems: CONST: Denies fever EYES: Denies blurry vision ENT: Denies nasal congestion C/V: Denies Chest pain RESP: Denies shortness of breath GI: Endorses crampy abdominal pain : Denies dysuria SKIN: Denies rash. MSK: Denies joint pain. NEURO: Denies headache ROS Other: All systems not noted in ROS Statement are negative. Past Medical History Past Medical History: Asthma, Cancer, Hypertension, Pneumonia, Sleep Apnea/C PAP/BIPAP Additional Past Medical History / Comment(s): Thyroid cancer status post radiation and thyroidectomy, skin cancer with removal, CHELSEA with CPAP (pt did not bring with her because normally she tolerates it well but last couple nights has not been able to tolerate), 2009 pneumonia, IBS. History of Any Multi-Drug Resistant Organisms: None Reported Past Surgical History: Adenoidectomy, Breast Surgery, Heart Catheterization, Tonsillectomy Additional Past Surgical History / Comment(s): Total thyroidectomy, skin cancer removal from nose and forehead, bilateral breast reductions, normal cardiac cath, colonoscopy. Past Anesthesia/Blood Transfusion Reactions: Previous Problems w/ Anesthesia, Motion Sickness Additional Past Anesthesia/Blood Transfusion Reaction / Comment(s): DIFFICULT INTUBATION. Pt received blood with breast surgery without reaction. Past Psychological History: Anxiety, Depression Smoking Status: Former smoker Past Alcohol Use History: Occasional Past Drug Use History: None Reported - Past Family History Father Family Medical History: Diabetes Mellitus, Myocardial Infarction ([place]) Additional Family Medical History / Comment(s): Father had 4-5 KY's with his first KY at the age of 78yrs. He lived to be 82 yrs old. Mother Family Medical History: Cancer Additional Family Medical History / Comment(s): Mother is 77 yrs old and has end stage pancreatic cancer. General Exam - General Exam Comments Initial Comments: General: Appears in no acute distress. HEAD: Normal with no signs of head trauma. EYES: EOMI ENT: Hearing grossly intact, normal oropharynx. Dry mucous membranes. RESPIRATORY: Clear breath sounds bilaterally. No wheezes, rales, or rhonchi. C/V: Regular rate and rhythm. S1 and S2 auscultated, no edema, peripheral pulses 2+ and intact throughout ABD: Abdomen soft, nondistended. No focal tenderness to palpation. No rebound tenderness. No peritoneal signs. No guarding. EXT: No obvious deformity. SKIN: No rashes or lesions observed on exposed skin. NEURO: Alert and oriented x 4. Limitations: no limitations Course Vital Signs 08/14/24 15:26 Temperature 98.8 F Pulse Rate 80 Respiratory 17 Rate Blood Pressure 145/81 O2 Sat by Pulse 100 Oximetry Medical Decision Making - Medical Decision Making Was pt. sent in by a medical professional or institution (, [facility], [facility], urgent care, hospital, or assisted...) When possible be specific @ -No Did you speak to anyone other than the patient for history (EMS, parent, family, police, friend...)? What history was obtained from this source @ -No Did you review nursing and triage notes (agree or disagree)? Why? @ -I reviewed and agree with nursing and triage notes Were old charts reviewed (outside hosp., previous admission, EMS record, old EKG, old radiological studies, urgent care reports/EKG's, assisted records)? Report findings @ -No old charts were reviewed Differential Diagnosis (chest pain, altered mental status, abdominal pain women, abdominal pain men, vaginal bleeding, weakness, fever, dyspnea, syncope, headache, dizziness, GI bleed, back pain, seizure, CVA, palpatations, mental health, musculoskeletal)? @ -Differential Abdominal Pain Men: Appendicitis, cholecystitis, diverticulosis, ischemic bowel, pancreatitis, hepatitis, UTI, gastroenteritis, AAA, incarcerated hernia, bowel obstruction, constipation, inflammatory bowel, hepatitis, peptic ulcer disease, splenic infarction, perforated viscus, testicular torsion, this is not meant to be an all-inclusive list EKG interpreted by me (3pts min.). @ -As above X-rays interpreted by me (1pt min.). @ -None done CT interpreted by me (1pt min.). @ -CT revealed diarrhea throughout the bowels but no other obvious acute process. U/S interpreted by me (1pt. min.). @ -None done What testing was considered but not performed or refused? (CT, X-rays, U/S, labs)? Why? @ -None What meds were considered but not given or refused? Why? @ -None Did you discuss the management of the patient with other professionals (professionals i.e. , [facility], [facility], lab, RT, psych nurse, child protective services social worker, lap layer, teacher, physics technical officer, rehabilitation case coordinator)? Give summary @ - I spoke with Dr. Truong of [facility] who accepted the admission. Was smoking cessation discussed for >3mins.? @ -No Was critical care preformed (if so, how long)? @ -No Were there social determinants of health that impacted care today? How? (Homelessness, low income, unemployed, alcoholism, drug addiction, transportation, low edu. Level, literacy, decrease access to med. care, prison, rehab)? @ -No Was there de-escalation of care discussed even if they declined (Discuss DNR or withdrawal of care, Hospice)? DNR status @ -No What co-morbidities impacted this encounter? (DM, HTN, Smoking, COPD, CAD, Cancer, CVA, ARF, Chemo, Hep., AIDS, mental health diagnosis, sleep apnea, morbid obesity)? @ -None Was patient admitted / discharged? Hospital course, mention meds given and route, prescriptions, significant lab abnormalities, going to OR and other pertinent info. @ -Patient presents for what seems like infectious diarrhea possible norovirus like symptoms however we will obtain abdominal workup, screen EKG, as well as CT abdomen pelvis. She will be symptomatically treated with IV fluids and Protonix. She got Zofran prior to arrival. She declines analgesia medications. She will be given a dose of Imodium. Currently within acceptable limits. Patient was in agreement this plan. EKG shows no signs of acute ischemia. Laboratory studies remarkable for what looks like hemoconcentration with a white count of 17 as well as a hemoglobin of 17. Likely secondary to dehydration. Lactic acid within normal limits. Remainder of the the laboratory studies within acceptable limits. CT reveals liquid diarrhea throughout the large bowels. I updated the patient. She is still having diarrhea, and show signs of dehydration on workup, patient will be admitted to the hospital for IV hydration, treatment Imodium and Zofran. Patient was in agreement this plan. I spoke with Dr. Truong of [facility] who accepted the admission. Undiagnosed new problem with uncertain prognosis? @ -No Drug Therapy requiring intensive monitoring for toxicity (Heparin, Nitro, Insulin, Cardizem)? @ -No Were any procedures done? @ -No Diagnosis/symptom? @ -Enteritis, dehydration, diarrhea Acute, or Chronic, or Acute on Chronic? @ -Acute Uncomplicated (without systemic symptoms) or Complicated (systemic symptoms)? @ -Complicated Side effects of treatment? @ -None Exacerbation, Progression, or Severe Exacerbation] @ -No Poses a threat to life or bodily function? @ -Yes - Lab Data Result diagrams: 08/14/24 15:51 08/14/24 15:51 Lab Results 08/14/24 08/14/24 08/14/24 Range/Units 15:39 15:51 15:51 WBC 17.2 H (3.8-10.6) k/uL RBC 5.80 H (3.80-5.40) m/uL Hgb 17.2 H (11.4-16.0) gm/dL Hct 53.8 H (34.0-46.0) % MCV 92.6 (80.0-100.0) fL MCH 29.7 (25.0-35.0) pg MCHC 32.1 (31.0-37.0) g/dL RDW 13.2 (11.5-15.5) % Plt Count 261 (150-450) k/uL MPV 8.0 Neutrophils % 89 % Lymphocytes % 5 % Monocytes % 4 % Eosinophils % 1 % Basophils % 0 % Neutrophils # 15.3 H (1.3-7.7) k/uL Lymphocytes # 0.8 L (1.0-4.8) k/uL Monocytes # 0.8 (0-1.0) k/uL Eosinophils # 0.2 (0-0.7) k/uL Basophils # 0.0 (0-0.2) k/uL PT 11.3 (10.0-12.5) sec INR 1.0 (<1.2) APTT 22.4 (22.0-30.0) sec Sodium (137-145) mmol/L Potassium (3.5-5.1) mmol/L Chloride (98-107) mmol/L Carbon Dioxide (22-30) mmol/L Anion Gap mmol/L BUN (7-17) mg/dL Creatinine (0.52-1.04) mg/dL Est GFR (CKD-EPI)AfAm (>60 ml/min/1.73 sqM) Est GFR (CKD-EPI)NonAf (>60 ml/min/1.73 sqM) Glucose (74-99) mg/dL Plasma Lactic Acid Red (0.7-2.0) mmol/L Calcium (8.4-10.2) mg/dL Magnesium (1.6-2.3) mg/dL Total Bilirubin (0.2-1.3) mg/dL AST (14-36) U/L ALT (4-34) U/L Alkaline Phosphatase (38-126) U/L Total Protein (6.3-8.2) g/dL Albumin (3.5-5.0) g/dL Amylase (30-110) U/L Lipase (23-300) U/L Influenza Type A (PCR) Not Detected (Not Detectd) Influenza Type B (PCR) Not Detected (Not Detectd) RSV (PCR) Not Detected (Not Detectd) SARS-CoV-2 (PCR) Not Detected (Not Detectd) 08/14/24 08/14/24 Range/Units 15:51 15:51 WBC (3.8-10.6) k/uL RBC (3.80-5.40) m/uL Hgb (11.4-16.0) gm/dL Hct (34.0-46.0) % MCV (80.0-100.0) fL MCH (25.0-35.0) pg MCHC (31.0-37.0) g/dL RDW (11.5-15.5) % Plt Count (150-450) k/uL MPV Neutrophils % % Lymphocytes % % Monocytes % % Eosinophils % % Basophils % % Neutrophils # (1.3-7.7) k/uL Lymphocytes # (1.0-4.8) k/uL Monocytes # (0-1.0) k/uL Eosinophils # (0-0.7) k/uL Basophils # (0-0.2) k/uL PT (10.0-12.5) sec INR (<1.2) APTT (22.0-30.0) sec Sodium 138 (137-145) mmol/L Potassium 4.3 (3.5-5.1) mmol/L Chloride 107 (98-107) mmol/L Carbon Dioxide 20 L (22-30) mmol/L Anion Gap 11 mmol/L BUN 20 H (7-17) mg/dL Creatinine 0.82 (0.52-1.04) mg/dL Est GFR (CKD-EPI)AfAm 88 (>60 ml/min/1.73 sqM) Est GFR (CKD-EPI)NonAf 77 (>60 ml/min/1.73 sqM) Glucose 148 H (74-99) mg/dL Plasma Lactic Acid Red 1.6 (0.7-2.0) mmol/L Calcium 9.3 (8.4-10.2) mg/dL Magnesium 2.1 (1.6-2.3) mg/dL Total Bilirubin 0.6 (0.2-1.3) mg/dL AST 23 (14-36) U/L ALT 25 (4-34) U/L Alkaline Phosphatase 103 (38-126) U/L Total Protein 7.0 (6.3-8.2) g/dL Albumin 4.3 (3.5-5.0) g/dL Amylase 53 (30-110) U/L Lipase 226 (23-300) U/L Influenza Type A (PCR) (Not Detectd) Influenza Type B (PCR) (Not Detectd) RSV (PCR) (Not Detectd) SARS-CoV-2 (PCR) (Not Detectd) - EKG Data -: EKG Interpreted by Me EKG Comments: 12-lead Electrocardiogram Interpretation Note EKG was reviewed and interpreted by myself. 12-lead ECG performed at 1610 is interpreted by me as revealing normal sinus rhythm at a rate of 70 beats per minute. Himrod is normal. NV interval is 183 ms, QRS duration is 88 ms, QTc is 390 ms.. There were no ST or T wave abnormalities to suggest myocardial ischemia or injury. R wave progression across the precordium was satisfactory. By my interpretation this EKG is non-diagnostic for acute ischemia. Disposition Clinical Impression: Diarrhea, Dehydration, Enteritis Disposition: ADMITTED IP TO THIS HOSP Condition: Stable Is patient prescribed a controlled substance at d/c from ED?: No Time of Disposition: 18:05
--- NOTE | 2024-08-14 17:20 | CT ---
EXAMINATION TYPE: CT abdomen pelvis w con DATE OF EXAM: 08/14/2024 5:07 PM COMPARISON: Previous CT abdomen/pelvis study dated 05/02/2022. CLINICAL INDICATION: Female, 64 years old with history of abdominal pain, diarrhea; States possible n orovirus, n/v/d and dizziness. Passed out in shower and called EMS. Uncontrollable diarrhea since 6am this morning. TECHNIQUE: Axial CT abdomen pelvis w con;Sagittal and coronal reformats were created on a separate w orkstation. Contrast used:100 ml mL of Isovue 300 with IV Contrast, (none if empty) Oral contrast used: without Oral Contrast (none if empty) CT DLP: 1152 mGycm, Automated exposure control for dose reduction was used. FINDINGS: LOWER CHEST: Unremarkable ABDOMEN LIVER: Diffusely hypoattenuating parenchyma. GALLBLADDER AND BILE DUCTS: Unremarkable. PANCREAS: Unremarkable. SPLEEN: Unremarkable. ADRENAL GLANDS: Unremarkable. KIDNEYS AND URETERS: No evidence of hydronephrosis or renal calculus. The ureters are unremarkable. Simple left renal cyst. PELVIS BLADDER: No evidence for wall thickening or mass given limitations of exam. REPRODUCTIVE: Unremarkable. ABDOMEN & PELVIS STOMACH AND BOWEL: Stomach and duodenum are unremarkable No evidence of bowel obstruction. Liquid col onic stool in the cecum and ascending colon as well as the rectum and portion of the sigmoid colon [place] ggestive of diarrhea. PERITONEUM/RETROPERITONEUM: No evidence of pneumoperitoneum or free fluid. VASCULATURE: No evidence of aortic aneurysm. MUSCULOSKELETAL: No acute osseous abnormalities LYMPH NODES: No gross evidence for lymphadenopathy. SOFT TISSUE/ABDOMINAL WALL: Unremarkable IMPRESSION: Liquid stool throughout the large bowel suggestive of diarrhea. Otherwise, no acute abnormality in th e abdomen/pelvis. [facility], , 08/14/2024 5:17 PM
[2024-08-14] MEDS: LOPERAMIDE 2 MG CAP PO STA (17:41)
[2024-08-14] MEDS: SODIUM CHLORIDE 0.9% 1,000 ML IV ONE (17:42)
[2024-08-14] MEDS ORDERED: NALOXONE 0.4 MG/ML 1 ML VIAL IV PRN (18:10)
[2024-08-14] MEDS: ONDANSETRON 4 MG/2 ML VIAL IVP STA (18:28)
[2024-08-14] MEDS: LOPERAMIDE 2 MG CAP PO PRN (21:18)
[2024-08-14] MEDS: ESCITALOPRAM 10 MG TAB PO SCH (21:18)
[2024-08-14 23:24] LABS: Appearance,Urine Clear (Clear); Bacteria,Urine Rare /hpf; Bilirubin,Urine Negative (Negative); Blood,Urine Small (Negative); Color,Urine Light Yellow; Glucose,Urine (UA) 4+ (Negative); Ketones,Urine 1+ (Negative); Leukocyte Esterase,Urine Negative (Negative); Mucus,Urine Rare /hpf; Nitrite,Urine Negative (Negative); PH, Urine 5.5 (5.0-8.0); Protein,Urine Trace (Negative); RBC,Urine 1 /hpf (0-5); Squamous Epithelial Cell,Urine 1 /hpf (0-4); Urobilinogen,Urine <2.0 mg/dL (<2.0); WBC,Urine 2 /hpf (0-5)
[2024-08-14 23:27] LABS: Specific Gravity,Urine >1.050 (1.001-1.035)
[2024-08-15] MEDS: ONDANSETRON 4 MG/2 ML VIAL IVP PRN (02:09)
[2024-08-15] MEDS: LEVOTHYROXINE 88 MCG TAB PO SCH (06:22)
[2024-08-15 06:46] LABS: Basophils % (A) 0 %; Eosinophils # (A) 0.2 k/uL (0-0.7); Eosinophils % (A) 2 %; HCT 47.2 % (34.0-46.0); HGB 15.4 gm/dL (11.4-16.0); Lymphocytes # (A) 1.5 k/uL (1.0-4.8); Lymphocytes % (A) 10 %; MCH 30.3 pg (25.0-35.0); MCHC 32.7 g/dL (31.0-37.0); MCV 92.6 fL (80.0-100.0); Mean Platelet Volume 8.8; Monocytes # (A) 0.8 k/uL (0-1.0); Monocytes % (A) 5 %; Neutrophils # (A) 12.3 k/uL (1.3-7.7); Neutrophils % (A) 82 %; Platelet Count 262 k/uL (150-450); RDW 13.6 % (11.5-15.5)
[2024-08-15 08:07] LABS: ALT 17 U/L (4-34); AST 19 U/L (14-36); African American GFR (CKD) >90 (>60 ml/min/1.73 sqM); Albumin 2.9 g/dL (3.5-5.0); Albumin/Globulin Ratio 1.2; Alkaline Phosphatase 75 U/L (38-126); Anion Gap 6 mmol/L; Blood Urea Nitrogen 17 mg/dL (7-17); Calcium 8.5 mg/dL (8.4-10.2); Carbon Dioxide 18 mmol/L (22-30); Chloride 115 mmol/L (98-107); Globulin 2.5 g/dL; Glucose 106 mg/dL (74-99); Non-African American GFR(CKD) 84 (>60 ml/min/1.73 sqM); Potassium 4.3 mmol/L (3.5-5.1); Sodium 139 mmol/L (137-145); Total Bilirubin 0.6 mg/dL (0.2-1.3); Total Protein 5.4 g/dL (6.3-8.2)
[2024-08-15] MEDS: PANTOPRAZOLE 40 MG/10 ML VIAL IV SCH (08:47)
[2024-08-15] MEDS: LOSARTAN-HCTZ 50-12.5 MG 1 EACH TAB PO SCH (08:47)
[2024-08-15] MEDS: DAPAGLIFLOZIN PROPANEDIOL 10 MG TABLET PO SCH (08:47)
[2024-08-15] MEDS: SODIUM CHLORIDE 0.9% 1,000 ML IV SCH (12:00)
--- NOTE | 2024-08-15 13:28 | P.HPIM ---
History of Present Illness H&P Date: 08/15/24 Chief Complaint: Diarrhea, enteritis Patient is a 64-year-old female with asthma, hypertension, thyroid cancer status post radiation and thyroidectomy, obstructive sleep apnea with CPAP and history of pneumonia presented to the emergency department with persistent diarrhea that started yesterday around 6 AM. Patient was seen at bedside. Patient reported that yesterday from 6 to 10 AM she had more than 20 episodes of watery diarrhea. Later during the day patient passed out while taking a shower. Patient did fall on her right hip and currently reports a 1 out of 10 soreness in that area. She denies hitting her head, losing consciousness during the fall. Patient did eat at a restaurant about 2 days ago and believes that it might be food poisoning causing her to have persistent diarrhea. Denies any recent use of antibiotics. Patient also reports feeling nauseated and having poor appetite as a result. In addition, patient reports a generalized mild abdominal soreness. Denies any vomiting at this time. Patient also reports a fever with a Tmax of 99.7. Denies chills, chest pain, shortness of breath, hematochezia/melena, tingling/numbness sensation in upper or lower extremity. ED documentation reviewed. I She reported thatn the ED patient was treated with Protonix 40 mg IV x 1, 2 boluses of normal saline, loperamide 4 mg x 1, Zofran 4 mg IV x 1, maintenance fluid at 130 cc an hour Vitals on admission temperature 98.3, pulse rate 76, respiratory rate 16, blood pressure 109/63, O2 sat 95% on room air EKG independently interpreted as sinus rhythm with ventricular rate of 70 bpm, QTc [address] of abdomen and pelvis shows liquid stool throughout the large bowel suggestive of diarrhea. Otherwise, no acute abnormality in the abdomen/pelvis. Labs on admission show WBC 15.0, hemoglobin 15.4, hematocrit 47.2, platelet 262, neutrophils 12.3, PT 11.3, PTT 22.4, INR 1.0, sodium 139, potassium 4.3, chloride 115, carbon dioxide 18, BUN 17, creatinine 0.76, glucose 106, lipase 226 UA shows negative for nitrites, negative for leukocyte esterase, 4+ glucose, 1+ ketone, small blood Respiratory panel negative Review of systems: Pertinent positives and negatives as discussed in HPI, a complete review of systems was performed and all other systems are negative. PMH: Asthma, hypertension, thyroid cancer status post radiation and thyroidectomy, obstructive sleep apnea with CPAP, and history of pneumonia PSH: Adenoidectomy, breast surgery, heart catheterization, tonsillectomy FMH: Father has a history of diabetes mellitus and myocardial infarction. Mother has a history of end-stage pancreatic cancer. Allergies: Moxifloxacin, sulfa drugs, penicillins, sodium nitrate, cephalexin, codeine, morphine, narcotics Social history: Tobacco: Former smoker Alcohol: Occasional alcohol use Recreational drugs: No drug use Travel: No travel history Sick contacts: No sick contacts Physical examination: Vital signs reviewed General: nontoxic, no distress, appears at stated age Derm: warm, dry, intact Head: atraumatic, normocephalic, symmetric Eyes: anicteric sclera Mouth: no lip lesion, mucus membranes moist Cardiovascular: S1 S2 reg, no murmur Lungs: CTA bilateral, no rhonchi, no rales, no accessory muscle use Abdominal: Soft, diffuse tenderness to palpation, no distention, no rebound tenderness Extremities: No cyanosis, clubbing, or lower extremity edema. Neuro: Alert, Oriented to time, person, place, Gross neurological examination did not reveal any focal deficits. Cranial nerves II to XII grossly intact. Bilateral upper and lower extremity muscle strength and sensation intact. Psych: well appearing, appropriate affect Assessment/Plan: Patient is a 64-year-old female with asthma, hypertension, thyroid cancer status postradiation and thyroidectomy, obstructive sleep apnea with CPAP and history of pneumonia presented to the emergency department with persistent diarrhea. Patient will be admitted to internal medicine service. Active: #. Viral gastroenteritis CT of abdomen pelvis shows liquid stool throughout the large bowel suggestive of diarrhea. Otherwise, no acute abnormality in abdomen/pelvis. Continue with loperamide 2 mg and Zofran 4 mg IV every 8 hours as needed Initiate normal saline at 75 cc an hour Order C. difficile testing Order stool culture Hold off on antibiotics for now #. Leukocytosis, likely secondary to acute stress WBC 15.0 Monitor morning CBC #. Hyperglycemia, no history of diabetes mellitus Glucose 106 Monitor morning CMP Accu-Cheks every 6 hours Hold home diabetic medications Chronic: #. Hypertension Continue home hydrochlorothiazide/losartan 1 tablet daily #. History of thyroid cancer status post radiation and thyroidectomy Continue home Synthroid 176 mcg daily #. Depression Continue home Lexapro 10 mg at bedtime F: No restrictions E: Replete as needed N: Regular diet A: EMS DVT prophylaxis: Lovenox 40 mg subcu daily The patient is admitted with an anticipated less than 2 midnight stay for evaluation of viral gastroenteritis CODE STATUS: Full code Discussed with: Patient Anticipated discharge place: Home Attestation: I have personally seen and examined the patient with Resident, reviewed the documentation and participated and agree with the assessment and plan as written. Jimbo Luu MD Past Medical History Past Medical History: Asthma, Cancer, Hypertension, Pneumonia, Sleep Apnea/CPAP/BIPAP Additional Past Medical History / Comment(s): Thyroid cancer status post radiation and thyroidectomy, skin cancer with removal, [place] with CPAP (pt did not bring with her because normally she tolerates it well but last couple nights has not been able to tolerate), 2008 pneumonia, IBS. History of Any Multi-Drug Resistant Organisms: None Reported Past Surgical History: Adenoidectomy, Breast Surgery, Heart Catheterization, Tonsillectomy Additional Past Surgical History / Comment(s): Total thyroidectomy, skin cancer removal from nose and forehead, bilateral breast reductions, normal cardiac cath, colonoscopy. Past Anesthesia/Blood Transfusion Reactions: Previous Problems w/ Anesthesia, Motion Sickness Additional Past Anesthesia/Blood Transfusion Reaction / Comment(s): DIFFICULT INTUBATION. Pt received blood with breast surgery without reaction. Past Psychological History: Anxiety, Depression Additional Psychological History / Comment(s): Pt resides with her spouse. She is independent. Smoking Status: Former smoker Past Alcohol Use History: Occasional Additional Past Alcohol Use History / Comment(s): Pt smoked from [id number]. Past Drug Use History: None Reported - Past Family History Father Family Medical History: Diabetes Mellitus, Myocardial Infarction (IA) Additional Family Medical History / Comment(s): Father had 4-5 IA's with his first IA at the age of 78yrs. He lived to be 82 yrs old. Mother Family Medical History: Cancer Additional Family Medical History / Comment(s): Mother is 77 yrs old and has end stage pancreatic cancer. Medications and Allergies Home Medications Medication Instructions Recorded Confirmed Type Losartan-Hctz 50-12.5 mg [Hyzaar 1 tab PO DAILY 07/17/14 08/14/24 History 50-12.5] Empagliflozin [Jardiance] 25 mg PO DAILY 08/14/24 08/14/24 History Escitalopram [Lexapro] 10 mg PO HS 08/14/24 08/14/24 History Levothyroxine Sodium [Synthroid] 175 mcg PO DAILY 08/14/24 08/14/24 History Tirzepatide [Mounjaro] 5 mg SQ PENNY 08/14/24 08/14/24 History Allergies Allergy/AdvReac Type Severity Reaction Status Date / Time moxifloxacin HCl Allergy Intermediate Rash/Hives Verified 08/14/24 18:09 [From Avelox] Sulfa (Sulfonamide Allergy Intermediate Rash/Hives Verified 08/14/24 18:09 Antibiotics) Penicillins Allergy Rash/Hives Verified 08/14/24 18:09 sodium nitrite AdvReac Severe MIGRAINE Verified 08/14/24 18:09 cephalexin [From Keflex] AdvReac yeast Verified 08/14/24 18:09 infections codeine AdvReac Nausea & Verified 08/14/24 18:09 Vomiting morphine AdvReac Nausea & Verified 08/14/24 18:09 Vomiting NARCOTICS AdvReac Severe Nausea Uncoded 01/28/23 09:04 Physical Exam Vitals: Vital Signs Temp Pulse Pulse Resp BP BP Pulse Ox 08/15/24 07:35 98.3 F 76 16 109/63 95 08/15/24 02:11 98.1 F 75 18 102/62 96 08/14/24 20:28 98.1 F 100 17 137/71 96 08/14/24 19:43 98.9 F 93 17 124/77 97 08/14/24 15:26 98.8 F 80 17 145/81 100 Intake and Output 08/14/24 08/15/24 08/15/24 22:59 06:59 14:59 Other: # Voids 1 # Bowel Movements 1 2 1 Weight 97.522 kg 97.522 kg Results CBC & Chem 7: 08/16/24 04:25 08/16/24 04:21 Labs: Abnormal Lab Results - Last 24 Hours (Table) 08/14/24 08/14/24 08/14/24 Range/Units 15:51 15:51 22:56 WBC 17.2 H (3.8-10.6) k/uL RBC 5.80 H (3.80-5.40) m/uL Hgb 17.2 H (11.4-16.0) gm/dL Hct 53.8 H (34.0-46.0) % Neutrophils # 15.3 H (1.3-7.7) k/uL Lymphocytes # 0.8 L (1.0-4.8) k/uL Chloride (98-107) mmol/L Carbon Dioxide 20 L (22-30) mmol/L BUN 20 H (7-17) mg/dL Glucose 148 H (74-99) mg/dL Total Protein (6.3-8.2) g/dL Albumin (3.5-5.0) g/dL Ur Specific [place] >1.050 H (1.001-1.035) Urine Protein Trace H (Negative) Urine Glucose (UA) 4+ H (Negative) Urine Ketones 1+ H (Negative) Urine Blood Small H (Negative) Urine Bacteria Rare H (None) /hpf Urine Mucus Rare H (None) /hpf 08/15/24 08/15/24 Range/Units 05:58 06:22 WBC 15.0 H (3.8-10.6) k/uL RBC (3.80-5.40) m/uL Hgb (11.4-16.0) gm/dL Hct 47.2 H (34.0-46.0) % Neutrophils # 12.3 H (1.3-7.7) k/uL Lymphocytes # (1.0-4.8) k/uL Chloride 115 H (98-107) mmol/L Carbon Dioxide 18 L (22-30) mmol/L BUN (7-17) mg/dL Glucose 106 H (74-99) mg/dL Total Protein 5.4 L (6.3-8.2) g/dL Albumin 2.9 L (3.5-5.0) g/dL Ur Specific [place] (1.001-1.035) Urine Protein (Negative) Urine Glucose (UA) (Negative) Urine Ketones (Negative) Urine Blood (Negative) Urine Bacteria (None) /hpf Urine Mucus (None) /hpf
[2024-08-15] MEDS: KETOROLAC 15 MG/ML 1 ML VIAL IVP PRN (16:48)
[2024-08-15 17:23] LABS: Glucose,Whole Blood 117 mg/dL (70-110)
[2024-08-15 23:13] LABS: Glucose,Whole Blood 102 mg/dL (70-110)
[2024-08-16 01:44] VITALS: RESP 16
[2024-08-16 05:59] LABS: Glucose,Whole Blood 98 mg/dL (70-110)
[2024-08-16] MEDS: ENOXAPARIN 40 MG/0.4 ML SYRINGE SQ SCH (08:34)
[2024-08-16 09:01] LABS: Basophils # (A) 0.01 X 10*3/uL (0.00-0.10); Basophils % (A) 0.1 %; Eosinophils # (A) 0.31 X 10*3/uL (0.04-0.35); Eosinophils % (A) 3.7 %; HCT 45.6 % (37.2-46.3); HGB 14.7 g/dL (12.0-15.0); Lymphocytes # (A) 1.54 X 10*3/uL (0.90-5.00); Lymphocytes % (A) 18.2 %; MCH 29.8 pg (27.0-32.0); MCHC 32.2 g/dL (32.0-37.0); MCV 92.3 FL (80.0-97.0); Mean Platelet Volume 10.9 FL (9.5-12.2); Monocytes # (A) 0.86 X 10*3/uL (0.20-1.00); Monocytes % (A) 10.1 %; NRBC Per 100 WBC 0 X 10*3/uL (0.00-0.01); Neutrophils # (A) 5.73 X 10*3/uL (1.80-7.70); Neutrophils % (A) 67.5 %; Platelet Count 222 X 10*3/uL (140-440); RBC 4.94 X 10*6/uL (4.10-5.20); RDW 13.2 % (11.5-14.5); WBC 8.48 X 10*3/uL (4.50-10.00)
[2024-08-16 09:43] LABS: ALT 18 U/L (8-44); AST 25 U/L (13-35); Albumin 3.2 g/dL (3.8-4.9); Alkaline Phosphatase 78 U/L (41-126); BUN/Creat Ratio 9.22 Ratio (12.00-20.00); Blood Urea Nitrogen 8.3 mg/dL (9.0-27.0); Calcium 8.4 mg/dL (8.7-10.3); Carbon Dioxide 20.1 mmol/L (21.6-31.8); Chloride 114 mmol/L (96-109); Glucose 111 mg/dL (70-110); Potassium 4.2 mmol/L (3.5-5.5); Sodium 142 mmol/L (135-145); Total Bilirubin 0.4 mg/dL (0.3-1.2); Total Protein 5.2 g/dL (6.2-8.2)
--- NOTE | 2024-08-16 10:16 | P.PN ---
Subjective Progress Note Date: 08/16/24 Principal diagnosis: Diarrhea Patient is a 64-year-old female with asthma, hypertension, thyroid cancer status post radiation and thyroidectomy, obstructive sleep apnea with CPAP and history of pneumonia presented to the emergency department with persistent diarrhea that started yesterday around 6 AM. Patient was seen at bedside. Patient reported that yesterday from 6 to 10 AM she had more than 20 episodes of watery diarrhea. Later during the day patient passed out while taking a shower. Patient did fall on her right hip and currently reports a 1 out of 10 soreness in that area. She denies hitting her head, losing consciousness during the fall. Patient did eat at a restaurant about 2 days ago and believes that it might be food poisoning causing her to have persistent diarrhea. Denies any recent use of antibiotics. Patient also reports feeling nauseated and having poor appetite as a result. In addition, patient reports a generalized mild abdominal soreness. Denies any vomiting at this time. Patient also reports a fever with a Tmax of 99.7. Denies chills, chest pain, shortness of breath, hematochezia/melena, tingling/numbness sensation in upper or lower extremity. ED documentation reviewed. I She reported thatn the ED patient was treated with Protonix 40 mg IV x 1, 2 boluses of normal saline, loperamide 4 mg x 1, Zofran 4 mg IV x 1, maintenance fluid at 130 cc an hour Vitals on admission temperature 98.3, pulse rate 76, respiratory rate 16, blood pressure 109/63, O2 sat 95% on room air EKG independently interpreted as sinus rhythm with ventricular rate of 70 bpm, QTc [address] of abdomen and pelvis shows liquid stool throughout the large bowel suggestive of diarrhea. Otherwise, no acute abnormality in the abdomen/pelvis. Labs on admission show WBC 15.0, hemoglobin 15.4, hematocrit 47.2, platelet 262, neutrophils 12.3, PT 11.3, PTT 22.4, INR 1.0, sodium 139, potassium 4.3, chloride 115, carbon dioxide 18, BUN 17, creatinine 0.76, glucose 106, lipase 226 UA shows negative for nitrites, negative for leukocyte esterase, 4+ glucose, 1+ ketone, small blood Respiratory panel negative Progress note for 08/16/2024: Patient was seen at bedside today. Reports feeling better last night but got worse this morning. Patient reported having a lot of flatulence. Has not had a bowel movement as of yet since yesterday afternoon. Reports feeling nauseated but no vomiting. No fever or chills since yesterday. Stool culture and C. difficile testing were not obtained as patient was not able to produce a stool sample. Denies other symptoms at this time. Review of Systems Constitutional: Denies chills, Denies fever Eyes: denies blurred vision, double vision or pain Ears, nose, mouth and throat: Denies headache, Denies sore throat Cardiovascular: Denies chest pain, Denies shortness of breath Respiratory: Denies cough Gastrointestinal: Reports abdominal pain, reports diarrhea, reports nausea, Denies vomiting Musculoskeletal: Denies myalgias Integumentary: Denies pruritus, Denies rash Neurological: Denies numbness, Denies weakness Psychiatric: Denies anxiety, Denies depression Endocrine: Denies fatigue, Denies weight change GENERAL: This is a 64-year-old in no apparent distress at the time of examination. Pleasant and cooperative. HEENT: Head is atraumatic, normocephalic. Sclerae anicteric. Conjunctivae are clear. Mucus membranes of the mouth are moist. Neck is supple. RESPIRATORY: Clear to auscultation. No wheezes, rales, or rhonchi. No use of accessory muscles. Patient maintaining oxygen saturation greater than 92%. No chest wall tenderness is noted on palpation or with deep breathing. CARDIOVASCULAR: Regular rate and rhythm. S1 and S2 noted. No systolic or diastolic murmur auscultated. No JVD noted. No S3 or S4 noted. GASTROINTESTINAL: No distention noted. Abdomen soft and round. Diffuse tendern ess to palpation. INTEGUMENTARY: No cyanosis. No jaundice. No rashes noted. No cellulitis noted. EXTREMITIES: 2+ peripheral pulses. No evidence of peripheral edema. No calf tenderness noted. NEUROLOGIC: Cranial nerves II-XII intact. Muscle strength and sensation in bilateral upper/lower extremity intact. PSYCHIATRIC: Awake and alert. Appropriate affect. Intact judgement and insight. Assessment/plan: Patient is a 64-year-old female with asthma, hypertension, thyroid cancer status postradiation and thyroidectomy, obstructive sleep apnea with CPAP and history of pneumonia presented to the emergency department with persistent diarrhea. Patient will be admitted to internal medicine service. #. Viral gastroenteritis CT of abdomen pelvis on 08/14/2024 shows liquid stool throughout the large bowel suggestive of diarrhea. Otherwise, no acute abnormality in abdomen/pelvis. Continue with loperamide 2 mg and Zofran 4 mg IV every 8 hours as needed Continue normal saline at 75 cc an hour Pending C. difficile testing and stool culture Hold off on antibiotics for now as patient is afebrile Consider simethicone 80 mg p.o. x 1 for excessive flatulence #. Leukocytosis, likely secondary to acute stress, now resolved WBC this morning 8.48 Monitor morning CBC #. Hyperglycemia, no history of diabetes mellitus Glucose 111 Monitor morning CMP Accu-Cheks every 6 hours Hold home diabetic medications Chronic: #. Hypertension Continue home hydrochlorothiazide/losartan 1 tablet daily #. History of thyroid cancer status post radiation and thyroidectomy Continue home Synthroid 176 mcg daily #. Depression Continue home Lexapro 10 mg at bedtime F: No restrictions E: Replete as needed N: Regular diet A: EMS DVT prophylaxis: Lovenox 40 mg subcu daily The patient is admitted with an anticipated less than 2 midnight stay for evaluation of viral gastroenteritis CODE STATUS: Full code Discussed with: Patient Anticipated discharge place: Home Objective - Vital Signs Vital signs: Vital Signs Temp 98 F 08/16/24 07:00 Pulse 67 08/16/24 07:00 Resp 16 08/16/24 07:00 BP 106/72 08/16/24 07:00 Pulse Ox 97 08/16/24 07:00 FiO2 Intake & Output 08/15/24 08/16/24 08/16/24 18:59 06:59 18:59 Intake Total 118 Balance 118 Intake: Oral 118 Other: Voiding Method Bedside Commode Diaper # Voids 2 3 # Bowel Movements 2 - Labs CBC & Chem 7: 08/16/24 04:25 08/16/24 04:21 Labs: Abnormal Lab Results - Last 24 Hours (Table) 08/15/24 08/16/24 Range/Units 17:21 04:21 Chloride 114 H (96-109) mmol/L Carbon Dioxide 20.1 L (21.6-31.8) mmol/L BUN 8.3 L (9.0-27.0) mg/dL BUN/Creatinine Ratio 9.22 L (12.00-20.00) Ratio Glucose 111 H (70-110) mg/dL POC Glucose (mg/dL) 117 H (70-110) mg/dL Calcium 8.4 L (8.7-10.3) mg/dL Total Protein 5.2 L (6.2-8.2) g/dL Albumin 3.2 L (3.8-4.9) g/dL
[2024-08-16 12:16] LABS: Glucose,Whole Blood 105 mg/dL (70-110)
[2024-08-16 14:34] VITALS: BP 121/73; PULSE 68; TEMP 97.8
--- NOTE | 2024-08-16 15:19 | P.DS ---
Providers Date of admission: 08/14/24 18:11 Expected date of discharge: 08/16/24 Attending physician: Harshad Yadav Primary care physician: Ray Gunn [facility] Hospital Course: Patient is a 64-year-old female with asthma, hypertension, thyroid cancer status post radiation and thyroidectomy, obstructive sleep apnea with CPAP and history of pneumonia presented to the emergency department with persistent diarrhea that started on 08/14/2024 around 6 AM. Patient reported that from 6 to 10 AM she had more than 20 episodes of watery diarrhea. Later during the day patient also passed out while taking a shower. She denies hitting her head, losing consciousness during the fall. Patient also reports a generalized mild abdominal soreness. Denies any vomiting at this time. Reported a Tmax of 99.7. Denies chills, chest pain, shortness of breath, hematochezia/melena, tingling/numbness sensation in upper or lower extremity. In the ED, CT of abdomen pelvis shows liquid stool throughout the large bowel suggestive of diarrhea. Otherwise no acute abnormality in abdomen/pelvis. Initial labs on admission were significant for WBC 15.0, neutrophils 12.3. Other labs were unremarkable. Patient was admitted to internal medicine service for treatment for viral gastroenteritis. During the course of patient's hospitalization, we continued symptomatic management with loperamide, Zofran, and normal saline. Patient was seen on 08/16/2024 with no acute complaints. She stated that her diarrhea has stopped. Patient is stable to be discharged back home. No changes were made to her home medication list. Patient is encouraged to follow-up with her primary care physician Dr. Gunn in 1 to 2 days. Attestation: I have personally seen and examined the patient with Resident, reviewed the documentation and participated and agree with the assessment and plan as written. Jimbo Luu MD Assessment: Viral gastroenteritis Pertinent Studies: CT scan of abdomen pelvis in the ED showed liquid stool throughout the large bowel suggestive of diarrhea. Otherwise, no acute abnormality in the abdomen/pelvis. Patient Condition at Discharge: Stable Plan - Discharge Summary New Discharge Prescriptions: Continue Losartan-Hctz 50-12.5 mg [Hyzaar 50-12.5] 1 tab PO DAILY Escitalopram [Lexapro] 10 mg PO HS Tirzepatide [Mounjaro] 5 mg SQ PENNY Empagliflozin [Jardiance] 25 mg PO DAILY Levothyroxine Sodium [Synthroid] 175 mcg PO DAILY Discharge Medication List Losartan-Hctz 50-12.5 mg [Hyzaar 50-12.5] 1 tab PO DAILY 07/17/14 [History] Empagliflozin [Jardiance] 25 mg PO DAILY 08/14/24 [History] Escitalopram [Lexapro] 10 mg PO HS 08/14/24 [History] Levothyroxine Sodium [Synthroid] 175 mcg PO DAILY 08/14/24 [History] Tirzepatide [Mounjaro] 5 mg SQ PENNY 08/14/24 [History] Follow up Appointment(s)/Referral(s): Ray Gunn DO [Primary Care Provider] - 1-2 days Patient Instructions/Handouts: Gastroenteritis (ED) Discharge Disposition: HOME SELF-CARE
[2024-08-18] MEDS ORDERED: NON FORMULARY DRUG (Tirzepatide [Mounjaro] 5 MG/0.5 ML Pen.Injctr) SQ SCH (09:00)
== END 2024-08-16 15:38 | disposition home or self-care (01) ==
LOC: EC 15:17 → 6NMEDSUR 18:11
PROVIDERS: ADMIT Hospitalist; ATTEND Hospitalist
DX: A08.4 Viral intestinal infection, unspecified (principal); E86.0 Dehydration; E89.0 Postprocedural hypothyroidism; I10 Essential (primary) hypertension; J45.909 Unspecified asthma, uncomplicated; G47.33 Obstructive sleep apnea (adult) (pediatric); R55 Syncope and collapse; M25.551 Pain in right hip; W19.XXXA Unspecified fall, initial encounter; R73.9 Hyperglycemia, unspecified; F32.A Depression, unspecified; Z79.84 Long term (current) use of oral hypoglycemic drugs; Z79.85 Long-term (current) use of injectable non-insulin antidiabetic drugs; Z79.890 Hormone replacement therapy; Z79.899 Other long term (current) drug therapy; Z88.0 Allergy status to penicillin; Z88.1 Allergy status to other antibiotic agents; Z88.2 Allergy status to sulfonamides; Z88.5 Allergy status to narcotic agent; Z91.02 Food additives allergy status; Z11.52 Encounter for screening for COVID-19; Z11.59 Encounter for screening for other viral diseases; Z87.891 Personal history of nicotine dependence; Z87.01 Personal history of pneumonia (recurrent); Z92.3 Personal history of irradiation; Z85.850 Personal history of malignant neoplasm of thyroid
CPT/HCPCS: 96376 ×2; 96361 ×2; 96372; 96375 ×2; 96374; 99285; 36415; 93005; 80053 ×3; 82150; 83605; 83690; 83735; 85025 ×3; 85610; 85730; 81001; 87636; 74177; G0378 ×3; J2405 ×3; J1650; J1885 ×2; Q9967; J2470 ×3